=== PATIENT | male | born 1945 | race Caucasian/White ===

== ENCOUNTER 2017-07-18 10:30 | Emergency (ER) | payer OTHER ==
[~2017-07-18] VITALS: Ht 172.7 cm; Wt 104.0 kg
[~2017-07-18 10:30] MED LIST: ASPI325T39 PO; CRG125 PO; DIGO0.2518 PO; GUAISYP4 PO; LISI20TA3 PO; LSX40 PO; LVQ750 PO; OXGN
[2017-07-18 10:49] VITALS: TEMP 36.6; Ht 172.7 cm; Wt 104.0 kg
[2017-07-18] MEDS ORDERED: MoRPHine SULFATE 2 MG/ML CARP IV STA (11:52)
[2017-07-18] MEDS ORDERED: ONDANSETRON INJ 2 MG/ML 2 ML VIAL IV STA (11:52)
[2017-07-18] MEDS ORDERED: CARV12.52 PO (12:32)
[2017-07-18] MEDS ORDERED: LNX25 PO (12:32)
[2017-07-18 12:33] LABS: BASO % 1.3 %; BASO ABS # 0.08 K/uL (0-0.2); COMPLETE YES; EOS % 2.9 %; HEMATOCRIT 40.7 % (42-52); IG% 0.2 %; LYMPH % 23.4 %; LYMPH ABS # 1.47 K/uL (1.2-3.4); MEAN CELL VOLUME 94.9 fL (80-100); MEAN CORPUSCULAR HEMOGLOBIN 31.2 pg (25-34); MEAN CORPUSCULAR HGB CONC 32.9 g/dl (32-36); MONO % 10.7 %; NEUT % 61.5 %; PLATELET COUNT 147 K/uL (130-400); RED BLOOD COUNT 4.29 M/uL (4.7-6.1); WHITE BLOOD COUNT 6.29 K/uL (4.8-10.8)
[2017-07-18 12:50] LABS: BUN/CREATININE RATIO 23.6 (10-20); C-REACTIVE PROTEIN 0.88 mg/dl (0-0.29); CALCIUM 9.2 mg/dl (8.5-10.1); CREATININE 1.25 mg/dl (0.60-1.40); POTASSIUM 4.3 mmol/L (3.5-5.1)
[2017-07-18] MEDS ORDERED: OPTIRAY 320 IV PRN (13:30)
--- NOTE | 2017-07-18 13:38 | EMERGENCY ROOM VISIT NOTE ---
ED Visit Note First contact with patient: 11:21 Pt seen and examined at bedside. Discussed with them additional imaging and possible IV antibiotics. Orders placed by the physician assistant golf course superintendent. We'll discuss with one clinic also. Concern for failed outpatient therapy at this time, we'll evaluate for osteomyelitis. Please see the physician assistant golf course superintendent's full detailed note.
--- NOTE | 2017-07-18 13:57 | DIAGNOSTIC IMAGING REPORT ---
R LOWER EXTREMITY WITH CLINICAL HISTORY: right lower leg open wound for 4 months infection TECHNIQUE: Transaxial acquisition with multi axial reformatted images COMPARISON STUDY: None FINDINGS: Moderate soft tissue edema throughout the soft tissue structures. Atherosclerotic change of the arterial structures of the lower leg which have been described previously. Soft tissue edema and Soft tissue ulceration in the mid tibial region. This is seen primarily anteriorly. There is no evidence for a lytic or blastic process of the underlying tibial bone structures and cells. No CT evidence for osteomyelitis. IMPRESSION: 1. Soft tissue edema of the right lower leg with evidence for soft tissue ulceration anterior to the midshaft tibia. 2. Appearance consistent with that of a soft tissue infection, although there is no evidence for drainable abscess or collection. 3. No CT evidence for osteomyelitis. The above report was generated using voice recognition software. It may contain grammatical, syntax or spelling errors. Electronically signed by: Carl Cruz M.D. 07/18/2017 1:56 PM Dictated Date/Time: 07/18/2017 1:46 PM
[2017-07-18] MEDS ORDERED: VANCOMYCIN 1GM/270ML NSS IV STA (14:10)
[2017-07-18] MEDS ORDERED: HYDR-5688 PO (16:48)
[2017-07-18] MEDS ORDERED: [UNRECOGNIZED DRUG - CODE] PO (16:48)
[2017-07-18] MEDS ORDERED: DOXY1TAB6 PO (16:48)
[2017-07-18 16:51] VITALS: BP 167/78; PULSE 84; O2SAT 95
--- NOTE | 2017-07-18 18:14 | Pharmacy Progress Note ---
ED Pharmacist Progress Note Date of Service: Jul 18, 2017. [facility] pharmacist called stating ofloxacin not in stock and was requesting a change to something they would not have to order. Reviewed case with Rain Mars PAC. Rx changed to Levofloxacin 500mg PO daily x 10 days no refills.
--- NOTE | 2017-07-18 19:52 | EMERGENCY ROOM VISIT NOTE ---
ED Visit Note First contact with patient: 11:21 Chief Complaint: Infected wounds. History of Present Illness: Mr. Barry is a 72-year-old Shyam male who ambulates into the ED accompanied by his and son complaining of infected wounds on the anterior aspects of both lower legs. Patient and report on April 03 Was seen at a local urgent care center on May 22 and July 11 for evaluation of his wounds. He was diagnosed with cellulitis during both visits. On his first visit he received an IM dose of Rocephin and was discharged to home on clindamycin and Silvadene. On his June visit x-rays were performed and there was no signs of osteomyelitis he was given a dose of ceftriaxone and discharged on ciprofloxacin, clindamycin and Bactroban. He was encouraged to make a follow-up with wound care clinic and was only able to be seen in late July. Patient complains of a burning sensation over the anterior aspects of both lower legs. He rates his discomfort 5/10. His pain is nonradiating. His pain worsens with palpation. He has not identified any alleviating factors related to the pain. He has been using his antibiotics for pain prior to arrival at the hospital without relief. He denies any associated fevers, chills, sweats, other skin eruptions, chest pain, shortness of breath, decreased appetite, abdominal pain, nausea/vomiting. Review of Systems: As noted above in history of present illness. 8 body systems were reviewed and found to be negative as noted above. Past Medical History: Paroxysmal atrial fibrillation, cardiomegaly, congestive heart failure, peripheral artery disease. Current Medications: Lasix, Prinivil, aspirin, digoxin, Coreg. Allergies to Medications: Patient denies. Social History: Patient is not currently employed; he feels safe in his home environment; he denies tobacco and alcohol use. Physical Examination: Vital Signs: Date Time Temp Pulse Resp B/P (MAP) Pulse Ox O2 Delivery O2 Flow Rate FiO2 07/18/17 16:51 84 20 167/78 95 Room Air 07/18/17 14:45 75 18 172/80 95 Room Air 07/18/17 13:28 85 18 145/74 98 Room Air 07/18/17 10:49 36.6 72 16 144/75 97 Room Air GENERAL: 72-year-old male in mild to moderate distress due to pain, nontoxic- appearing, afebrile and hemodynamically stable. NEUROLOGICAL: Awake, alert and oriented to person, place and time. Answering questions appropriately and following commands. Normal gait. Good hand eye coordination. SKIN: Warm, dry and pink. Right Lower Leg: Patient has a open wound over the anterior tibia measuring cm. within the wound there is granulation but also purulent material. Surrounding the wound there is some erythema but the skin does not appear cellulitic. Left Lower Leg: He has a abrasion versus a full open thickness wound like the right lower leg. There is no purulent material draining from this wound. Surrounding the wound there is some erythema but the skin does not appear cellulitic. There is no lymphangitis on either legs HEENT: Atraumatic and normocephalic. THORAX: Lungs sounds are clear to auscultation and equal bilaterally with symmetrical chest wall. ABDOMEN: Flat, soft and nontender. Positive bowel sounds in all quadrants. EXTREMITIES: Moves all extremities well on command and with purpose. All distal neurovascular statuses are intact and equal bilaterally. No calf tenderness or cords. ED Course: Patient is assessed as noted above. Patient's medication list was reviewed. Laboratory Testing: Test 07/18/17 12:00 Range/Units White Blood Count 6.29 4.8-10.8 K/uL Red Blood Count 4.29 4.7-6.1 M/uL Hemoglobin 13.4 14.0-18.0 g/dL Hematocrit 40.7 42-52 % Mean Corpuscular Volume 94.9 80-100 fL Mean Corpuscular Hemoglobin 31.2 25-34 pg Mean Corpuscular Hemoglobin Concent 32.9 32-36 g/dl Platelet Count 147 130-400 K/uL Mean Platelet Volume 10.0 7.4-10.4 fL Neutrophils (%) (Auto) 61.5 % Lymphocytes (%) (Auto) 23.4 % Monocytes (%) (Auto) 10.7 % Eosinophils (%) (Auto) 2.9 % Basophils (%) (Auto) 1.3 % Neutrophils # (Auto) 3.88 1.4-6.5 K/uL Lymphocytes # (Auto) 1.47 1.2-3.4 K/uL Monocytes # (Auto) 0.67 0.11-0.59 K/uL Eosinophils # (Auto) 0.18 0-0.5 K/uL Basophils # (Auto) 0.08 0-0.2 K/uL RDW Standard Deviation 54.6 36.4-46.3 fL RDW Coefficient of Variation 15.7 11.5-14.5 % Immature Granulocyte % (Auto) 0.2 % Immature Granulocyte # (Auto) 0.01 0.00-0.02 K/uL Sodium Level 135 136-145 mmol/L Potassium Level 4.3 3.5-5.1 mmol/L Chloride Level 101 98-107 mmol/L Carbon Dioxide Level 29 21-32 mmol/L Anion Gap 6.0 3-11 mmol/L Blood Urea Nitrogen 30 7-18 mg/dl Creatinine 1.25 0.60-1.40 mg/dl Est Creatinine Clear Calc Drug Dose 62.4 ml/min Estimated GFR () 66.3 Estimated GFR (Non- 57.2 BUN/Creatinine Ratio 23.6 10-20 Random Glucose 84 70-99 mg/dl Calcium Level 9.2 8.5-10.1 mg/dl C-Reactive Protein 0.88 0-0.29 mg/dl Blood Culture: Pending Gram Stain: Pending Wound Culture: Pending Right Lower Extremity IV contrast CT: Was reviewed by myself and showing soft tissue edema of the right lower leg with evidence of soft tissue ulcers a patient over the anterior mid shaft tibia; appearance consisted with soft tissue infection although there is no evidence of abscess or collection. No evidence of osteomyelitis. IV lock was initiated and patient received 2 mg of morphine IV for pain, 4 mg of Zofran IV and 1 g of vancomycin IV. Patient was reassessed multiple times during his stay in the emergency department. Patient's case was reviewed with Dr. Quarles; she apparently assessed the patient we agreed on diagnostic approach, treatment, disposition and plan per Patient's case was consulted with case management and the [facility] hospitalist for medical observation/admission Case management felt that patient met criteria for admission and the hospitalist was concerned about his peripheral artery disease and that there was no benefits of admission to the hospital. I discussed these issue with the patient and he agreed to go home with follow-up. Patient was educated about today's findings and instructed on his treatment plan ; he verbalizes understanding and agreement with this plan. Clinical Impression: Nonhealing open wounds to the bilateral anterior lower extremities. Disposition: Patient discharged home in stable condition; prior to departure he was reassessed and subjectively reported that he was pain-free. Plan: Patient was prescribed Floxin and doxycycline and instructed on their use. Patient was prescribed Bradford one tablet every 6 hours as needed for severe pain ; he was given appropriate narcotic precautions. Patient was encouraged to keep his upcoming appointment with wound care and follow-up with the vascular surgeon. Patient was encouraged return ED for worsening pain, fevers, worsening signs of infection or any new/concerning symptoms.
[2017-07-21] MEDS ORDERED: LEVO1TAB33 PO (10:00)
== END 2017-07-18 17:27 | disposition home or self-care (01) ==
LOC: C.EDB 10:31 → C.EDC 17:27
DX: L97.219 Non-pressure chronic ulcer of right calf with unspecified severity (principal); L97.229 Non-pressure chronic ulcer of left calf with unspecified severity; I48.0 Paroxysmal atrial fibrillation; I51.7 Cardiomegaly; I50.9 Heart failure, unspecified; I73.9 Peripheral vascular disease, unspecified; Z79.82 Long term (current) use of aspirin

== ENCOUNTER 2018-08-04 22:11 | Inpatient (IN) ==
[2018-08-04] MEDS ORDERED: FUROSEMIDE 40 MG/4 ML VIAL IV STA (22:34)
[2018-08-04 22:43] LABS: Basophils # (auto) 0.03 K/uL (0-0.2); Basophils % (auto) 0.5 %; Eosinophils # (auto) 0.18 K/uL (0-0.5); Eosinophils % (auto) 2.9 %; Hematocrit (blood only) 39.9 % (42-52); Hemoglobin 13.4 g/dL (14.0-18.0); Immature Granulocytes # (auto) 0.01 K/uL (0.00-0.02); Immature Granulocytes % (auto) 0.2 %; Lymphocytes # (auto) 1.69 K/uL (1.2-3.4); Lymphocytes % (auto) 27.3 %; Mean Corpuscular Hgb Conc 33.6 g/dL (32-36); Mean Corpuscular Volume 95.2 fL (80-100); Mean Platelet Volume 10.9 fL (7.4-10.4); Monocytes % (auto) 9.7 %; Neutrophils # (auto) 3.67 K/uL (1.4-6.5); Neutrophils % (auto) 59.4 %; Platelet Count 139 K/uL (130-400); RDW Coefficient of Variation 16.4 % (11.5-14.5); RDW Standard Deviation 57.4 fL (36.4-46.3); Red Blood Count 4.19 M/uL (4.7-6.1); White Blood Count 6.18 K/uL (4.8-10.8)
[2018-08-04 22:53] LABS: Appearance Urine Clear (Clear); Bilirubin Urine Negative (Negative); Color Urine Yellow; Glucose Urine UA Negative (Negative); Ketones Urine Negative (Negative); Leukocyte Esterase Urine Negative (Negative); Nitrite Urine Negative (Negative); Protein Urine Negative (Negative); Urobilinogen Urine Negative (Negative)
[2018-08-04 22:54] LABS: INR 1.1 (0.9-1.1); Partial Thromboplastin Time 26.2 Seconds (21.0-31.0); Prothrombin Time 11.1 Seconds (9.0-12.0)
[2018-08-04 22:59] LABS: Albumin Level 3.9 gm/dl (3.4-5.0); BUN Creatinine Ratio 26.1 (10-20); Calcium 8.7 mg/dl (8.5-10.1); Creatinine Clr Calc Pharmacy 54.9 ml/min; Est GFR (African American) 58.4; Est GFR (Non-African American) 50.4; Potassium 3.8 mmol/L (3.5-5.1)
[2018-08-04 23:02] LABS: RBC Morphology Unremarkable
[2018-08-04 23:04] LABS: Albumin Globulin Ratio 0.8 (0.9-2); Bilirubin,Total 0.6 mg/dl (0.2-1); Globulin 4.8 gm/dl (2.5-4.0); Total Protein 8.7 gm/dl (6.4-8.2); Troponin I 0.034 ng/ml (0-0.045)
--- NOTE | 2018-08-04 23:11 | XRay Report ---
XR chest 1V portable CLINICAL HISTORY: Shortness of breath COMPARISON STUDY: 03/25/2015 FINDINGS: The heart is moderately enlarged. There is no failure. There is no focal pulmonary consolid ation. No pleural effusions are visualized.[ IMPRESSION: Cardiomegaly. No acute findings. Electronically signed by: Roberto Og M.D. 08/04/2018 11:05 PM
[2018-08-05] MEDS ORDERED: OPTIRAY 320 125ml IV PRN (00:37)
--- NOTE | 2018-08-05 00:49 | Emergency Department Note ---
Entered by Vy Sparrow acting as a scribe for Maya Franco MD History of Present Illness General Chief complaint: Chest Pain Stated complaint: CHEST PAIN Source: patient History of Present Illness Onset (ago): hour(s) (prior to arrival) Location: chest (chest pain from fluid buildup) Radiation: other (arm) Pain Consistency: + intermittent Maximum Pain Intensity: 8 Associated symptoms: + shortness of breath and + other (right leg swelling) Treatments prior to arrival: aspirin (325 mg) The patient is a 73 year old M who presents to the Emergency Room with complaints of intermittent chest pain starting prior to arrival. He states that he is experiencing fluid buildup in his chest. He states that he was prescribed Lasix for congestive heart failure 9.5 years ago but adds that it is not currently helping. He notes that his chest pain radiates to his arm. He states that he is currently experiencing shortness of breath and right leg swelling for a year. Pt's relates a h/o "blockages in the legs and Dr Brooks ( interventional cards) told us his vascular disease is severe." He notes that he took 1 aspirin 325 mg prior to arrival. He denies having a pacemaker, CV stents, and diabetes. Home Medications Home Medications Medication Instructions Recorded Confirmed Type aspirin 325 mg PO DAILY 08/05/18 08/05/18 History carvedilol 12.5 mg PO BID 08/05/18 08/05/18 History digoxin 250 mcg PO DAILY 08/05/18 08/05/18 History furosemide 80 mg PO DAILY 08/05/18 08/05/18 History lisinopril 20 mg PO DAILY 08/05/18 08/05/18 History Allergies Allergy/AdvReac Type Severity Reaction Status Date / Time ragweed pollen Allergy Mild Verified 08/05/18 00:09 Dust Allergy Mild Uncoded 08/05/18 00:09 Past Med/Surg History Medical History History of atrial fibrillation (Chronic) CHF (congestive heart failure) (Chronic) Cardiomegaly (Chronic) Family History Other No significant family history Social History Current Living Situation: Family Current Living Situation Comment: Lives in [place] with Other Information That Helps Us Care for You: No Safety Concerns: Feels Safe At This Time Smoking Status: Former smoker Tobacco Type: cigarettes Cigarettes per Day: 1ppd Smoking End Date: 2014 Number of Years Since Quit: 4 Hx Alcohol Use: No Hx Substance Use: No Beliefs That Will Affect Care: Spiritism Communication Ability: Effective Review of Systems See HPI for pertinent positives & negatives. and A total of 10 systems reviewed and were otherwise negative Physical Exam Vital Signs Vital Signs - 24 hr 08/04/18 22:13 08/04/18 23:11 08/04/18 23:54 Temperature 36.4 C L Temperature Source Oral Sepsis Recent Fever Within 48 Hours No Sepsis New/Unexplained Change in Mental Status No Sepsis Action Taken by Nursing No Action Required Pulse Rate 68 Pulse Rate [Right Finger] 62 55 L Pulse Rhythm Regular Pulse Rhythm [Right Finger] Pulse Strength Normal Pulse Strength [Right Finger] Respiratory Rate 18 19 18 Respiratory Effort / Characteristics Non-Labored Spontaneous Respiratory Depth Normal Normal Respiratory Pattern Regular Blood Pressure 149/89 H Blood Pressure [Left Arm] 154/81 H 133/75 Blood Pressure [Right Arm] Blood Pressure Mean 109 Blood Pressure Mean [Left Arm] 105 94 Blood Pressure Mean [Right Arm] Blood Pressure Position Sitting Blood Pressure Position [Left Arm] Blood Pressure Position [Right Arm] Pulse Oximetry 97 97 95 Oxygen Delivery Method Room Air Room Air Oxygen Delivery Method [Left Index Finger] 08/05/18 00:40 08/05/18 02:15 08/05/18 03:48 Temperature Temperature Source Sepsis Recent Fever Within 48 Hours Sepsis New/Unexplained Change in Mental Status Sepsis Action Taken by Nursing Pulse Rate Pulse Rate [Right Finger] 69 56 L 57 L Pulse Rhythm Pulse Rhythm [Right Finger] Pulse Strength Pulse Strength [Right Finger] Respiratory Rate 20 21 20 Respiratory Effort / Characteristics Non-Labored Respiratory Depth Normal Respiratory Pattern Blood Pressure Blood Pressure [Left Arm] 179/77 H 137/86 148/83 H Blood Pressure [Right Arm] Blood Pressure Mean Blood Pressure Mean [Left Arm] 111 103 104 Blood Pressure Mean [Right Arm] Blood Pressure Position Blood Pressure Position [Left Arm] Blood Pressure Position [Right Arm] Pulse Oximetry 97 97 95 Oxygen Delivery Method Room Air Oxygen Delivery Method [Left Index Finger] 08/05/18 04:30 08/05/18 04:40 08/05/18 05:21 Temperature 36.4 C L Temperature Source Oral Sepsis Recent Fever Within 48 Hours Sepsis New/Unexplained Change in Mental Status Sepsis Action Taken by Nursing Pulse Rate Pulse Rate [Right Finger] 76 Pulse Rhythm Pulse Rhythm [Right Finger] Regular Pulse Strength Pulse Strength [Right Finger] Normal Respiratory Rate 18 Respiratory Effort / Characteristics Non-Labored Respiratory Depth Normal Respiratory Pattern Regular Blood Pressure Blood Pressure [Left Arm] 165/87 H Blood Pressure [Right Arm] Blood Pressure Mean Blood Pressure Mean [Left Arm] 113 Blood Pressure Mean [Right Arm] Blood Pressure Position Blood Pressure Position [Left Arm] Lying Blood Pressure Position [Right Arm] Pulse Oximetry 97 Oxygen Delivery Method Room Air Room Air Room Air Oxygen Delivery Method [Left Index Finger] Room Air 08/05/18 05:22 08/05/18 05:57 08/05/18 07:00 Temperature 36.5 C Temperature Source Oral Sepsis Recent Fever Within 48 Hours Sepsis New/Unexplained Change in Mental Status Sepsis Action Taken by Nursing Pulse Rate Pulse Rate [Right Finger] 66 Pulse Rhythm Pulse Rhythm [Right Finger] Pulse Strength Pulse Strength [Right Finger] Respiratory Rate 18 Respiratory Effort / Characteristics Non-Labored Respiratory Depth Normal Respiratory Pattern Regular Blood Pressure Blood Pressure [Left Arm] 138/89 Blood Pressure [Right Arm] Blood Pressure Mean Blood Pressure Mean [Left Arm] 105 Blood Pressure Mean [Right Arm] Blood Pressure Position Blood Pressure Position [Left Arm] Lying Blood Pressure Position [Right Arm] Pulse Oximetry 96 Oxygen Delivery Method Room Air Room Air Oxygen Delivery Method [Left Index Finger] Room Air 08/05/18 08:00 08/05/18 11:53 Temperature 37.0 C Temperature Source Oral Sepsis Recent Fever Within 48 Hours Sepsis New/Unexplained Change in Mental Status Sepsis Action Taken by Nursing Pulse Rate 51 L Pulse Rate [Right Finger] 71 Pulse Rhythm Pulse Rhythm [Right Finger] Pulse Strength Pulse Strength [Right Finger] Respiratory Rate 20 Respiratory Effort / Characteristics Non-Labored Respiratory Depth Normal Respiratory Pattern Regular Blood Pressure Blood Pressure [Left Arm] Blood Pressure [Right Arm] 130/76 Blood Pressure Mean Blood Pressure Mean [Left Arm] Blood Pressure Mean [Right Arm] 94 Blood Pressure Position Blood Pressure Position [Left Arm] Blood Pressure Position [Right Arm] Sitting Pulse Oximetry 96 Oxygen Delivery Method Room Air Room Air Oxygen Delivery Method [Left Index Finger] Vital signs reviewed. General: Chronically ill-appearing male, in no significant distress. HEENT: No scleral icterus, PERRLA, neck supple. Atraumatic. Cardiovascular: Regular rate and rhythm, no extra sounds. Pulmonary: Clear to auscultation bilaterally, normal work of breathing. Abdomen: Obese, soft, nontender, nondistended, positive bowel sounds. Musculoskeletal: Atraumatic, 1+ pitting edema to bilateral lower extremities with 2 cm ulceration to mid-anterior de la paz, venous stasis changes of right greater than left lower extremity. Neurologic: Patient awake alert and oriented x 3. Skin: Warm, dry, no rash. Wound to RLE as described above. Course 223: Past medical records reviewed. The patient was evaluated in room B9, and a complete history and physical examination were performed. Administered Medications Aspirin (Ecotrin) 325 mg PO DAILY DANY Stop: 09/04/18 08:59 Last Admin: 08/05/18 08:29 Dose: 325 mg Carvedilol (Coreg) 12.5 mg PO BID DANY Stop: 09/04/18 08:59 Last Admin: 08/05/18 08:29 Dose: 12.5 mg Heparin Sodium (Porcine) (Heparin Sodium (Porcine)) 5,000 units SQ Q12 DANY Stop: 09/04/18 08:59 Last Admin: 08/05/18 08:28 Dose: 5,000 units Furosemide 40 mg/ Syringe 4 mls @ 4 mls/min IV [id number] DANY Stop: 09/04/18 08:59 Last Admin: 08/05/18 08:29 Dose: 4 mls/min Lisinopril (Zestril) 20 mg PO DAILY DANY Stop: 09/04/18 08:59 Last Admin: 08/05/18 08:29 Dose: 20 mg Magnesium Oxide (Mag-Ox) 400 mg PO QAM DANY Stop: 09/04/18 08:59 Last Admin: 08/05/18 08:39 Dose: 400 mg Pantoprazole Sodium (Protonix) 40 mg PO DAILY DANY Stop: 09/04/18 08:59 Last Admin: 08/05/18 08:29 Dose: 40 mg Potassium Chloride (Klor-Con M20) 20 meq PO QAM DANY Stop: 09/04/18 08:59 Last Admin: 08/05/18 08:39 Dose: 20 meq Discontinued Medications Furosemide (Lasix) 80 mg IV NOW STA Stop: 08/04/18 22:35 Last Admin: 08/04/18 22:43 Dose: 80 mg Piperacillin Sod/Tazobactam Sod (Zosyn) 4.5 gm in 120 mls @ 240 mls/hr IV NOW ONE Stop: 08/05/18 05:59 Last Infusion: 08/05/18 06:31 Dose: 0 mls/hr Admin: 08/05/18 05:56 Dose: 240 mls/hr Vancomycin HCl 2,500 mg/ (Sodium Chloride) 550 mls @ 200 mls/hr IV NOW ONE Stop: 08/05/18 07:59 Last Infusion: 08/05/18 11:00 Dose: 0 mls/hr Admin: 08/05/18 06:32 Dose: 200 mls/hr Piperacillin Sod/Tazobactam (Sod 3.375 gm/ Dextrose) 115 mls @ 28.75 mls/hr IV Q8H DANY; Protocol Stop: 08/15/18 09:59 Last Admin: 08/05/18 10:12 Dose: 28.8 mls/hr Ioversol (Optiray 320 125ml) 104 ml IV ONCE PRN PRN Reason: Interaction Checking Stop: 08/09/18 00:36 Last Admin: 08/05/18 00:38 Dose: 104 ml Perflutren Lipid Microsphere (Definity) 1 ml IV ONCE ONE Stop: 08/05/18 08:37 Last Admin: 08/05/18 08:36 Dose: 2 ml Medical Decision Making Differential Diagnosis Differential diagnoses includes but is not limited to pneumonia, bronchitis, COPD/Asthma exacerbation, pneumothorax, pulmonary embolism, congestive heart failure, acute coronary syndrome Medical Records Attestation: I reviewed the patient's medical records. Home Medications Current Medication List: was personally reviewed by me Laboratory Data Attestation: I reviewed the patient's lab results. Result diagrams: 08/05/18 06:48 08/05/18 06:48 Lab Results 08/04/18 08/04/18 08/04/18 Range/Units 22:25 22:25 22:25 WBC 6.18 (4.8-10.8) K/uL RBC 4.19 L (4.7-6.1) M/uL Hgb 13.4 L (14.0-18.0) g/dL Hct 39.9 L (42-52) % MCV 95.2 (80-100) fL MCH 32.0 (25-34) pg MCHC 33.6 (32-36) g/dL RDW Std Deviation 57.4 H (36.4-46.3) fL RDW Coeff of Maria Teresa 16.4 H (11.5-14.5) % Plt Count 139 (130-400) K/uL MPV 10.9 H (7.4-10.4) fL Immature Gran % (Auto) 0.2 % Neut % (Auto) 59.4 % Lymph % (Auto) 27.3 % Mcclain % (Auto) 9.7 % Eos % (Auto) 2.9 % Baso % (Auto) 0.5 % Immature Gran # (Auto) 0.01 (0.00-0.02) K/uL Neut # (Auto) 3.67 (1.4-6.5) K/uL Lymph # (Auto) 1.69 (1.2-3.4) K/uL Mcclain # (Auto) 0.60 H (0.11-0.59) K/uL Eos # (Auto) 0.18 (0-0.5) K/uL Baso # (Auto) 0.03 (0-0.2) K/uL RBC Morphology Unremarkable PT 11.1 (9.0-12.0) Seconds INR 1.1 (0.9-1.1) APTT 26.2 (21.0-31.0) Seconds PTT Ratio 1.0 D-Dimer (0-500) ug/L FEU Sodium 137 (136-145) mmol/L Potassium 3.8 (3.5-5.1) mmol/L Chloride 101 (98-107) mmol/L Carbon Dioxide 28 (21-32) mmol/L Anion Gap 7.0 (3-11) BUN 36 H (7-18) mg/dl Creatinine 1.38 (0.6-1.4) mg/dl Est Cr Clr Drug Dosing 54.9 ml/min Est GFR ( Amer) 58.4 Est GFR (Non-Af Amer) 50.4 BUN/Creatinine Ratio 26.1 H (10-20) Glucose 107 H (70-99) mg/dl Calcium 8.7 (8.5-10.1) mg/dl Magnesium 2.0 (1.8-2.4) mg/dl Total Bilirubin 0.6 (0.2-1) mg/dl AST 36 (15-37) U/L ALT 56 (12-78) U/L Alkaline Phosphatase 66 (45-117) U/L Troponin I 0.034 (0-0.045) ng/ml NT-Pro-B Natriuret Pep 2441 H (0-900) pg/ml Total Protein 8.7 H (6.4-8.2) gm/dl Albumin 3.9 (3.4-5.0) gm/dl Globulin 4.8 H (2.5-4.0) gm/dl Albumin/Globulin Ratio 0.8 L (0.9-2) Urine Color Urine Appearance (Clear) Urine pH (4.5-7.5) Ur Specific Reeders (1.000-1.030) Urine Protein (Negative) Urine Glucose (UA) (Negative) Urine Ketones (Negative) Urine Blood (Negative) Urine Nitrite (Negative) Urine Bilirubin (Negative) Urine Urobilinogen (Negative) Ur Leukocyte Esterase (Negative) Digoxin (0.8-2.0) ng/ml 08/04/18 08/04/18 08/05/18 Range/Units 22:25 22:45 06:48 WBC (4.8-10.8) K/uL RBC (4.7-6.1) M/uL Hgb (14.0-18.0) g/dL Hct (42-52) % MCV (80-100) fL MCH (25-34) pg MCHC (32-36) g/dL RDW Std Deviation (36.4-46.3) fL RDW Coeff of Maria Teresa (11.5-14.5) % Plt Count (130-400) K/uL MPV (7.4-10.4) fL Immature Gran % (Auto) % Neut % (Auto) % Lymph % (Auto) % Mcclain % (Auto) % Eos % (Auto) % Baso % (Auto) % Immature Gran # (Auto) (0.00-0.02) K/uL Neut # (Auto) (1.4-6.5) K/uL Lymph # (Auto) (1.2-3.4) K/uL Mcclain # (Auto) (0.11-0.59) K/uL Eos # (Auto) (0-0.5) K/uL Baso # (Auto) (0-0.2) K/uL RBC Morphology PT (9.0-12.0) Seconds INR (0.9-1.1) APTT (21.0-31.0) Seconds PTT Ratio D-Dimer 4150 H* (0-500) ug/L FEU Sodium (136-145) mmol/L Potassium (3.5-5.1) mmol/L Chloride (98-107) mmol/L Carbon Dioxide (21-32) mmol/L Anion Gap (3-11) BUN (7-18) mg/dl Creatinine (0.6-1.4) mg/dl Est Cr Clr Drug Dosing ml/min Est GFR ( Amer) Est GFR (Non-Af Amer) BUN/Creatinine Ratio (10-20) Glucose (70-99) mg/dl Calcium (8.5-10.1) mg/dl Magnesium (1.8-2.4) mg/dl Total Bilirubin (0.2-1) mg/dl AST (15-37) U/L ALT (12-78) U/L Alkaline Phosphatase (45-117) U/L Troponin I 0.034 (0-0.045) ng/ml NT-Pro-B Natriuret Pep (0-900) pg/ml Total Protein (6.4-8.2) gm/dl Albumin (3.4-5.0) gm/dl Globulin (2.5-4.0) gm/dl Albumin/Globulin Ratio (0.9-2) Urine Color Yellow Urine Appearance Clear (Clear) Urine pH 5.0 (4.5-7.5) Ur Specific Reeders 1.010 (1.000-1.030) Urine Protein Negative (Negative) Urine Glucose (UA) Negative (Negative) Urine Ketones Negative (Negative) Urine Blood Negative (Negative) Urine Nitrite Negative (Negative) Urine Bilirubin Negative (Negative) Urine Urobilinogen Negative (Negative) Ur Leukocyte Esterase Negative (Negative) Digoxin (0.8-2.0) ng/ml 08/05/18 08/05/18 08/05/18 Range/Units 06:48 06:48 11:48 WBC 5.20 (4.8-10.8) K/uL RBC 3.94 L (4.7-6.1) M/uL Hgb 12.1 L (14.0-18.0) g/dL Hct 37.4 L (42-52) % MCV 94.9 (80-100) fL MCH 30.7 (25-34) pg MCHC 32.4 (32-36) g/dL RDW Std Deviation 57.0 H (36.4-46.3) fL RDW Coeff of Maria Teresa 16.4 H (11.5-14.5) % Plt Count 128 L (130-400) K/uL MPV 11.5 H (7.4-10.4) fL Immature Gran % (Auto) 0.0 % Neut % (Auto) 57.7 % Lymph % (Auto) 26.7 % Mcclain % (Auto) 12.3 % Eos % (Auto) 2.7 % Baso % (Auto) 0.6 % Immature Gran # (Auto) 0.00 (0.00-0.02) K/uL Neut # (Auto) 3.00 (1.4-6.5) K/uL Lymph # (Auto) 1.39 (1.2-3.4) K/uL Mcclain # (Auto) 0.64 H (0.11-0.59) K/uL Eos # (Auto) 0.14 (0-0.5) K/uL Baso # (Auto) 0.03 (0-0.2) K/uL RBC Morphology PT (9.0-12.0) Seconds INR (0.9-1.1) APTT (21.0-31.0) Seconds PTT Ratio D-Dimer (0-500) ug/L FEU Sodium 138 (136-145) mmol/L Potassium 3.6 (3.5-5.1) mmol/L Chloride 102 (98-107) mmol/L Carbon Dioxide 30 (21-32) mmol/L Anion Gap 6.0 (3-11) BUN 31 H (7-18) mg/dl Creatinine 1.16 (0.6-1.4) mg/dl Est Cr Clr Drug Dosing 66.8 ml/min Est GFR ( Amer) 72.0 Est GFR (Non-Af Amer) 62.1 BUN/Creatinine Ratio 26.7 H (10-20) Glucose 99 (70-99) mg/dl Calcium 8.6 (8.5-10.1) mg/dl Magnesium (1.8-2.4) mg/dl Total Bilirubin 0.8 (0.2-1) mg/dl AST 27 (15-37) U/L ALT 47 (12-78) U/L Alkaline Phosphatase 52 (45-117) U/L Troponin I (0-0.045) ng/ml NT-Pro-B Natriuret Pep (0-900) pg/ml Total Protein 8.0 (6.4-8.2) gm/dl Albumin 3.6 (3.4-5.0) gm/dl Globulin 4.4 H (2.5-4.0) gm/dl Albumin/Globulin Ratio 0.8 L (0.9-2) Urine Color Urine Appearance (Clear) Urine pH (4.5-7.5) Ur Specific Reeders (1.000-1.030) Urine Protein (Negative) Urine Glucose (UA) (Negative) Urine Ketones (Negative) Urine Blood (Negative) Urine Nitrite (Negative) Urine Bilirubin (Negative) Urine Urobilinogen (Negative) Ur Leukocyte Esterase (Negative) Digoxin 1.0 (0.8-2.0) ng/ml Imaging Data Radiologist's Impression: Radiology results as stated below per my review and the radiologist's interpretation: XR chest 1V portable CLINICAL HISTORY: Shortness of breath COMPARISON STUDY: 03/25/2015 FINDINGS: The heart is moderately enlarged. There is no failure. There is no focal pulmonary consolidation. No pleural effusions are visualized.[ IMPRESSION: Cardiomegaly. No acute findings. CTA chest: No central pulmonary embolus. Some air trapping in the lungs. Mild atelectasis/scarring at the left lung base. Splenomegaly. Mediastinal and hilar nodes. Probable small subtle dense cyst in the right kidney. Radiologist: Chase Mckee MD ECG Data Attestation: I personally reviewed and interpreted this ECG as follows: Indication: chest pain Rate (beats per minute): 63 Rhythm: atrial fibrillation Findings: + other (previous inferior infarct), + Q waves (QTc 462) and + RBBB; no acute ischemic change Comparison ECG Date: from (03/26/15) Change: no significant change Blood Pressure Blood Pressure Findings: Elevated blood pressure Blood Pressure Disposition: further management by hospitalist MDM Narrative This pt was evaluated and appeared to be in no distress. IV access was obtained and lab work was drawn. PT was placed on the knot tier. He is found to be in a rate controlled a fib with RBBB. CXR reveals cardiomegaly, no overt pulmonary edema. BNP is 2441. Lab work indicated d-dimer of 4000. CTA chest was performed and is negative for PE. Pt's previous echo indicated severe LV dysfunction. Pt did receive 80 mg IV lasix on my initial evaluation. He began to diurese and states SOB was improved, but his CP had worsened in severity, but was fleeting. Dopplers of BLE were ordered. Pt's case was d/w Dr Tyler of the hospitalist service, who will evaluate for further management. Pt and were educated on the findings and plan, and agree. Impression & Plan Substernal chest pain, ROBERT (dyspnea on exertion), Atrial fibrillation with normal ventricular rate, RBBB Discharge Plan Visit Data *Final* Discharge Date/Time: 08/05/18 04:30 Chief Complaint: Chest Pain Stated Complaint: CHEST PAIN ED Provider: Maya Franco Discharge Problem: Substernal chest pain, ROBERT (dyspnea on exertion), Atrial fibrillation with normal ventricular rate, RBBB Patient Disposition: Admitted As Inpatient Discharge Instructions Interventions: ED Discharge Assessment Last Done: 08/05/18 04:30 The scribe's documentation has been prepared under my direction and personally reviewed by me in its entirety. I confirm that the note above accurately reflects all work, treatment, procedures, and medical decision making performed by me.
--- NOTE | 2018-08-05 03:08 | History & Physical Report ---
Date of Service August 05, 2018 Assessment & Plan (1) Acute exacerbation of congestive heart failure: Chris Schmidt is a 73 y.o male with history of Heart Failure and PAD admitted for management of acute heart failure exacerbation and chest pain found to have celllitis of right lower extremity requiring treatment. 1. Acute Heart Failure Exacerbation - Likely secondary to chronic decompensation vs cellulitis infection -CXR negative for consolidation/effusion -BNP of 2441 -s/p 80mg Lasix IV in ED -Lasix 40mg IV BID ordered, continue IV lasix until euvolemic state -Hold home lasix of 80mg PO daily -Admitted to Tele for monitoring -Monitor I/O -last ECHO found from 2014 with EF of 15-20% will order ECHO -Continue Carvedilol, Digoxin, and Lisinopril 2. Chest Pain - Likely Secondary to heart failure exacerbation -CTA official read pending, mediastinal/hilar adenopathy noted -Adenopathy may be secondary to primary lung cancer vs sarcoid -CHELSEA ordered to eval for Sarcoid -Troponin x 1 negative (0.034), will trend -EKG: RBB, old inferior infarct -Pulm consulted for further evaluation 3. Peripheral Artery Disease -Chronic in nature -Venous doppler completed, read is pending -Ulcer present on right lower extremity, with overlying cellulitis -Vascular consulted: will appreciate recommendations 4. Cellulitis right lower extremity -Unclear as to how long it has been present -surrounding site of peripheral ulcer -WBC wnl -Vanc and Zosyn ordered -Blood cultures ordered -Will consult wound care 5. ASCVD risk -Continue Aspirin 325mg PO daily FEN/GI IVF: hold Electroytes: monitor and replace Nutrition: low sodium diet Activity: out of bed to chair with assistance GI PPX: Protonix DVT PPx: Heparin and SCD Code: DNR Dispo: Chris Schmidt is admitted to tele for management of heart failure exacerbation and treatment of cellulitis. Plan to discharge to home when stable. Present on Admission?: Yes (2) PAD (peripheral artery disease): Present on Admission?: Yes (3) Cellulitis: Present on Admission?: Yes History of Present Illness Chief Complaint: I could feel fluid sloshing around and then started to have chest pain Primary Care Provider: Bladimir Flores PA-C Chris Schmidt is a 73 y.o male with history of heart failure, PAD, and Afib who presents to the ED after having an episode of left-sided chest pain. History per patient and his . States that over the past two weeks he has noticed increased swelling in bilateral lower extremity but has been taking Lasix 80mg PO daily. Does not miss doses of medication. Per he sleeps in the recliner most nights over the past 10 years. Also reports non-productive cough x 2 days and "feeling sloshing around inside my chest and belly". On 08/04 reports "fluid in my chest" followed by chest pain during the evening described as aching in sensation and not resolving. He did not take medication to relieve pain in chest but reports that he doubled his dose of lasix and symptoms persisted. Follows with cardiology, Dr. Verma. Additional history of PAD with right lower extremity ulcer on anterior portion of lower leg. Ulcer has been present x 1 year. Per recommendations were made in the past for femoral artery bypass but Mr. Schmidt refused surgery. Wound care has not been helpful and Mrs. Schmidt has been using household remedies, Vitamin O, to cleanse the site regularly. ED course: Lasix 80 IV given once, CXR, CTA, and Venous Doppler obtained. Allergies Allergy/AdvReac Type Severity Reaction Status Date / Time ragweed pollen Allergy Mild Verified 08/05/18 00:09 Dust Allergy Mild Uncoded 08/05/18 00:09 Home Medications Home Medications Medication Instructions Recorded Confirmed Type aspirin 325 mg PO DAILY 08/05/18 08/05/18 History carvedilol 12.5 mg PO BID 08/05/18 08/05/18 History digoxin 250 mcg PO DAILY 08/05/18 08/05/18 History furosemide 80 mg PO DAILY 08/05/18 08/05/18 History lisinopril 20 mg PO DAILY 08/05/18 08/05/18 History Past Med/Surg History Medical History History of atrial fibrillation (Chronic) CHF (congestive heart failure) (Chronic) Cardiomegaly (Chronic) Family History Other No significant family history Social History Current Living Situation: Family Current Living Situation Comment: Lives in [place] with Other Information That Helps Us Care for You: No Safety Concerns: Feels Safe At This Time Smoking Status: Former smoker Tobacco Type: cigarettes Cigarettes per Day: 1ppd Smoking End Date: 2014 Number of Years Since Quit: 4 Hx Alcohol Use: No Hx Substance Use: No Beliefs That Will Affect Care: Gnosticism Communication Ability: Effective Review of Systems Constitutional: no fever, no sweats and no fatigue Eyes: no worsening vision Ear, Nose, Mouth, Throat: no nasal congestion Respiratory: + cough and + dyspnea; no chest congestion, no pain with cough, no sputum production and no wheezing Cardiovascular: + dyspnea, + dyspnea on exertion and + edema; no chest pain and no palpitations Gastrointestinal: no nausea, no vomiting and no change in bowel habits Genitourinary (Male): no dysuria Musculoskeletal: no back pain and no neck pain Integumentary: no rash Neurologic: no tingling, no numbness and no paresthesia Physical Exam 2 Vital Signs (Past 24 Hours): Last Vital Signs Temp 36.4 C L 08/04/18 22:13 Pulse 56 L 08/05/18 02:15 Resp 21 08/05/18 02:15 BP 137/86 08/05/18 02:15 Pulse Ox 97 08/05/18 02:15 Constitutional: well developed, well nourished, + well hydrated, + obese and cooperative; no acute distress and not ill appearing Eyes: PERRL, conjunctivae normal, anicteric sclerae ENMT: moist mucus membranes, mucus in posterior pharynx Neck: neck supple, negative LAD Respiratory: Auscultation: + diminished lung sounds (left lower base); no rales, no rhonchi and no wheezes Cardiovascular: Rate/Rhythm: regular rate and regular rhythm Heart Sounds: + murmur (systolic ejection murmur grade III/) Extremities: + edema (non- pitting bilateral lower extremity) right lower extremity: anterior surface with central ulcer approximately [id number] and surrounding erythema that expands to full anterior surface of right lower extremity, nttp, warmth, erythema Gastrointestinal (Abdomen): abdomen firm, distended, nttp, bowel sounds present in all 4 quadrants Musculoskeletal: moving all extremities, strength 5/5 Skin: left lower extremity with hemosiderin deposition, please see comments above regarding ulcer on right lower extremity Results & Data Laboratory Results BNP of 2441 BUN/Cr 26.1 Diagnostic Findings Chest Xray negative for consolidation/effusion Code Status & VTE Plan Code Status DNR VTE Prophylaxis Plan VTE Prophylaxis will be ordered: Yes Supervising Physician Co-Signing Physician Notes Attending addendum: I have physically seen this patient, have supervised the medical residents activities, and agree with the H&P unless as otherwise noted. Assessment and Plan: Acute on chronic systolic CHF with exacerbation-- The patient will be admitted to telemetry for serial cardiac enzymes, serial EKG's, cardiac rhythm monitoring and a 2-D echocardiogram with Dopplers. Given Lasix 80 mg IV in the ED. Continue Lasix 40 mg IV twice daily. Hold outpatient Lasix dose of 80 mg p.o. daily. Echo 2014 showed EF of 15-20%. Continue carvedilol, digoxin and lisinopril. Mediastinal and hilar lymphadenopathy/splenomegaly-- Concerned about inflammatory disease such as sarcoidosis, or oncologic process such as lymphoma. Patient does of note have extensive association with small meals and with dust. Consult pulmonary. Peripheral arterial disease-- Chronic ulceration with extensive surrounding cellulitis on right lower extremity. Order x-ray and arterial Dopplers. Empiric vancomycin and Zosyn IV. Order blood cultures. Consult wound care. Could benefit in the short term with Unna boots. Remaining orders and notations as noted.
[2018-08-05] MEDS ORDERED: PIPERACILL/TAZOBAC CONSULT ACTIVE PRN (05:15)
[2018-08-05] MEDS ORDERED: MAGNESIUM HYDROXIDE SUSP 30 ML UDC PO PRN (05:15)
[2018-08-05] MEDS ORDERED: POLYETHYLENE (MIRALAX) 17 GM PACK PO PRN (05:15)
[2018-08-05] MEDS ORDERED: ACETAMINOPHEN 325 MG TAB PO PRN (05:15)
[2018-08-05] MEDS ORDERED: ALUMINUM/MAGNESIUM SUSP 30 ML UDC PO PRN (05:15)
[2018-08-05] MEDS ORDERED: ONDANSETRON INJ 2 MG/ML 2 ML VIAL IV PRN (05:15)
[2018-08-05] MEDS ORDERED: VANCOMYCIN HCL 2,500 MG in SODIUM CHLORIDE 0.9% 500 ML IV ONE (05:15)
[2018-08-05] MEDS ORDERED: VANCOMYCIN CONSULT ACTIVE PRN (05:15)
[2018-08-05] MEDS ORDERED: NITROGLYCERIN SL 0.4 MG/TAB TAB SL PRN (05:15)
[2018-08-05] MEDS ORDERED: MoRPHine SULFATE 2 MG/ML CARP IV PRN (05:15)
[2018-08-05] MEDS ORDERED: PIPERACILLIN/TAZOBACTAM 4.5 GM/120 ML BAG IV ONE (05:30)
[2018-08-05 07:34] LABS: Basophils # (auto) 0.03 K/uL (0-0.2); Basophils % (auto) 0.6 %; Eosinophils # (auto) 0.14 K/uL (0-0.5); Eosinophils % (auto) 2.7 %; Hematocrit (blood only) 37.4 % (42-52); Hemoglobin 12.1 g/dL (14.0-18.0); Lymphocytes # (auto) 1.39 K/uL (1.2-3.4); Lymphocytes % (auto) 26.7 %; Mean Corpuscular Volume 94.9 fL (80-100); Mean Platelet Volume 11.5 fL (7.4-10.4); Monocytes # (auto) 0.64 K/uL (0.11-0.59); Monocytes % (auto) 12.3 %; Neutrophils % (auto) 57.7 %; Platelet Count 128 K/uL (130-400); RDW Coefficient of Variation 16.4 % (11.5-14.5); Red Blood Count 3.94 M/uL (4.7-6.1)
--- NOTE | 2018-08-05 07:38 | Ultrasound Report ---
BILATERAL LOWER EXTREMITY VENOUS DOPPLER CLINICAL HISTORY: DVT, PE COMPARISON STUDY: No previous studies for comparison. TECHNIQUE: Sonography of the deep venous system of the bilateral lower extremities was performed. Co mpression and augmentation were evaluated. FINDINGS: The bilateral common femoral, superficial femoral and popliteal veins were compressible. A ugmentation was normal. Flow was shown within the deep calf vessels. IMPRESSION: No evidence of deep venous thrombus within the bilateral lower extremities. Electronically signed by: Paras Odell M.D. 08/05/2018 7:36 AM
[2018-08-05 07:40] LABS: Albumin Level 3.6 gm/dl (3.4-5.0); BUN Creatinine Ratio 26.7 (10-20); Calcium 8.6 mg/dl (8.5-10.1); Creatinine Clr Calc Pharmacy 66.8 ml/min; Est GFR (Non-African American) 62.1; Mean Corpuscular Hgb Conc 32.4 g/dL (32-36); Potassium 3.6 mmol/L (3.5-5.1)
[2018-08-05 07:43] LABS: Albumin Globulin Ratio 0.8 (0.9-2); Bilirubin,Total 0.8 mg/dl (0.2-1); Globulin 4.4 gm/dl (2.5-4.0)
--- NOTE | 2018-08-05 07:45 | CT Scan Report ---
CT ANGIOGRAPHY OF THE CHEST, PULMONARY EMBOLUS PROTOCOL CLINICAL HISTORY: Elevated d-dimer. Dyspnea. COMPARISON STUDY: No previous studies for comparison. TECHNIQUE: Following IV administration of 104 mL of Optiray-320, helical axial images of the chest we re obtained utilizing the pulmonary embolus protocol. Maximal intensity projections and sagittal and coronal reformats were viewed on an independent 3D workstation. IV contrast was administered withou t complication. Automated exposure control was utilized for the study. A dose lowering technique wa s utilized adhering to the principles of ALARA. CT DOSE: 676.82 mGy.cm FINDINGS: No pulmonary emboli are identified although the pulmonary arteries within the lower lobes are suboptimally assessed given suboptimal opacification. There is no significant contrast within the thoracic aorta although the caliber of the thoracic aorta is normal. There is moderate cardiomegaly. Extensive coronary artery calcification is noted. There are mildly enlarged mediastinal lymph nodes. There are prominent bilateral hilar lymph nodes. Subcarinal lymph node measures 1.2 cm in short axis diameter. There are several calcified thoracic lymph nodes. The central airways are patent. There is no pneumothorax or pleural effusion. There is no consolidation. Central airways are patent. There is mild bronchial wall thickening. Linear opacities suggest atelectasis. A 9 mm hypodense lesion within the upper pole the right kidney is suboptimally assessed on this exam but may reflect a hyperdense c yst. IMPRESSION: 1. No pulmonary emboli identified although lower lobe pulmonary arteries suboptimally assessed given suboptimal opacification and respiratory motion artifact. 2. Moderate cardiomegaly. Extensive coronary artery calcification. 3. Mildly enlarged mediastinal and bilateral hilar lymph nodes, a nonspecific finding. Electronically signed by: Paras Odell M.D. 08/05/2018 7:44 AM
[2018-08-05] MEDS: PANTOprazole 40 MG TAB PO SCH (08:29)
[2018-08-05] MEDS: ASPIRIN 325 MG ECTAB PO SCH (08:29)
[2018-08-05] MEDS: CARVEDILOL 12.5 MG TAB PO SCH ×2 (08:29→20:08)
[2018-08-05] MEDS: FUROSEMIDE 40 MG in SYRINGE 0 ML IV SCH ×2 (08:29→17:53)
[2018-08-05] MEDS ORDERED: PERFLUTREN LIPID MICROSPHERE (DEFINITY) IV ONE (08:36)
[2018-08-05] MEDS: POTASSIUM CHLORIDE 20 MEQ TABCR PO SCH (08:39)
[2018-08-05] MEDS: MAGNESIUM OXIDE 400 MG TAB PO SCH (08:39)
[2018-08-05] MEDS ORDERED: FUROSEMIDE 40 MG/4 ML VIAL IV SCH (09:00)
[2018-08-05] MEDS ORDERED: LISINOPRIL 20 MG TAB PO SCH (09:00)
[2018-08-05] MEDS ORDERED: HEPARIN SOD 5,000 UNIT/0.5 ML VIAL SQ SCH (09:00)
[2018-08-05] MEDS ORDERED: PIPERACILLIN/TAZOBACTAM 3.375 GM in DEXTROSE 5% 100 ML IV SCH (10:00)
--- NOTE | 2018-08-05 11:07 | Cardiology Consultation ---
Date of Consultation August 05, 2018 Assessment & Plan (1) Edema due to congestive heart failure: He presents with progressive leg swelling, although his BNP is not terribly elevated, his lung findings are minimal and his chest x-ray did not show severe edema. He may be developing right heart failure. Agree with diuresis, but watch for renal insufficiency in the setting. I will review his echocardiogram for LV and RV function. (2) Substernal chest pain: He describes some type of substernal chest discomfort, he has extensive vascular disease so would not be surprising if he has coronary artery disease. On the other hand he is not having it now and his enzymes have been negative x2. He has declined invasive evaluation in the past, I would not pursue evaluation now. (3) Afib: He has a long history of atrial fibrillation, he is not on an anticoagulant. This is by his choice. The heart rate today is low, he is on carvedilol but he is also on digoxin. I do not know if he needs to be on digoxin but I do need to get a level and I will stop it for now. He may feel better with a higher heart rate. (4) Nonischemic cardiomyopathy: He has a long-standing cardiomyopathy, this is felt to be nonischemic although he has never been evaluated invasively and he does have severe vascular disease so he could have an ischemic component. He is currently inadequately treated however that is his choice. He should have a biventricular ICD in place, that would possibly help with left ventricular function since his QRS is so wide, it would protect him from life-threatening arrhythmias and would allow us to go up on the beta-lauryn. He has declined that in the past, I did not readdress it today but if he would choose to do that he certainly is a candidate for it. In the meantime we will try to treat his cardiomyopathy with medications. History of Present Illness Reason for Consultation: CHF, Chest pain Attending Physician: Koby Rivera History of Present Illness This is a very pleasant 73-year-old gentleman, he is on mesh, with a history of atrial fibrillation since 2008. Echocardiography in 2014 showed left ventricular ejection fraction of 15-20% as well as moderate aortic stenosis. He also has severe vascular disease including occlusion of the distal abdominal aorta and peripheral arterial disease in his legs. He has a history of bifascicular block as well. Anticoagulation was attempted with warfarin however he could not comply with the management, and he has declined 1 of the newer agents therefore he has been treated with aspirin. ICD implantation has been discussed with him in the past and he has declined. He has also declined evaluation or treatment for his heart disease. He presented to the emergency room here on August 04, 2018 with complaints of chest discomfort. He also describes fluid retention, shortness of breath and leg swelling. He was admitted with congestive heart failure, troponin has been negative x2 and he was noted to be bradycardic. He is on carvedilol 12.5 mg twice daily as well as digoxin 0.25 mg daily and lisinopril 20 mg daily as well. I do not think a digoxin level was performed here and I do not see one in our office record either. His BNP was somewhat elevated but not severely so on arrival and his chest x-ray did not show clear pulmonary edema. At the time of my evaluation in the intensive care unit he appeared restless, he told me he was tired of laying in bed. He does not seem to be particularly short of breath, he does note that his legs are swollen. He is not having chest discomfort currently. Allergies Allergy/AdvReac Type Severity Reaction Status Date / Time ragweed pollen Allergy Mild Verified 08/05/18 00:09 Dust Allergy Mild Uncoded 08/05/18 00:09 Home Medications Home Medications Medication Instructions Recorded Confirmed Type aspirin 325 mg PO DAILY 08/05/18 08/05/18 History carvedilol 12.5 mg PO BID 08/05/18 08/05/18 History digoxin 250 mcg PO DAILY 08/05/18 08/05/18 History furosemide 80 mg PO DAILY 08/05/18 08/05/18 History lisinopril 20 mg PO DAILY 08/05/18 08/05/18 History Patient History Medical History History of atrial fibrillation (Chronic) CHF (congestive heart failure) (Chronic) Cardiomegaly (Chronic) Family History Other No significant family history Social History Current Living Situation: Family Current Living Situation Comment: Lives in [place] with Other Information That Helps Us Care for You: No Safety Concerns: Feels Safe At This Time Smoking Status: Former smoker Tobacco Type: cigarettes Cigarettes per Day: 1ppd Smoking End Date: 2014 Number of Years Since Quit: 4 Hx Alcohol Use: No Hx Substance Use: No Beliefs That Will Affect Care: Oriental Orthodox Communication Ability: Effective Review of Systems Negative for lightheadedness, dizziness, palpitations, presyncope or syncope. Chronic dyspnea on exertion, no exertional chest pain. No orthopnea or PND, worsening of chronic peripheral edema. No GI complaints, no bleeding. No neurologic complaints such as TIA or stroke symptoms. Other systems negative. Physical Exam 2 Vital Signs (Past 24 Hours): Last Vital Signs Temp 36.5 C 08/05/18 07:00 Pulse 51 L 08/05/18 08:00 Resp 18 08/05/18 07:00 BP 138/89 08/05/18 07:00 Pulse Ox 96 08/05/18 07:00 Physical Exam: Constitutional: Alert, cooperative and in no distress. HEENT: Unremarkable Neck: No jugular venous distention, carotid pulses are irregular but otherwise normal and equal bilaterally without bruits. Pulmonary: Clear to auscultation bilaterally. Cardiac: Irregular rhythm with no a grade 2/6 crescendo decrescendo murmur at the base, no, gallop or rub. Abdomen: Soft, nontender with normal bowel sounds. Extremities: +3 bilateral pretibial edema. Distal pulses intact. Neurologic: No focal findings. Gait is steady. Skin: No rash, ecchymoses or petechiae. Results & Data Diagnostic Findings Electrocardiogram: His admission electrocardiogram shows atrial fibrillation with a somewhat slow heart rate and a bifascicular block pattern with a very wide QRS complex. Telemetry: Atrial fibrillation with variable heart rate, often in the 30s at rest. Rarely if ever over 100. Echocardiogram: Done this morning, pending
--- NOTE | 2018-08-05 11:21 | Pharmacy Report ---
Pharmacy Abx Initial Consult - Date of Service August 05, 2018 - Pharmacy Dosing Scope Date of Consult: 08/05/18 Consultation requested by: Dr. Manley Pharmacy is consulted to initiate Vancomycin IV dosing therapy, order appropriate labs and adjust drug dose/frequency. - Subjective The patient is a 73 year old M admitted on 08/05/18 03:08. - Objective Height: 5 ft 8 in Weight: 105.5 kg (BMI 35.4) Vital Signs (Past 12hrs): Vital Signs Temp Pulse Pulse Resp BP Pulse Ox 08/05/18 08:00 51 L 08/05/18 07:00 36.5 C 66 18 138/89 96 08/05/18 04:40 36.4 C L 76 18 165/87 H 97 08/05/18 03:48 57 L 20 148/83 H 95 08/05/18 02:15 56 L 21 137/86 97 08/05/18 00:40 69 20 179/77 H 97 08/04/18 23:54 55 L 18 133/75 95 Lab Results (24hrs): Laboratory Tests (24 Hours) 08/05/18 08/05/18 08/04/18 06:48 06:48 22:25 WBC 5.20 Neut # (Auto) 3.00 Creatinine 1.16 1.38 Est Cr Clr Drug Dosing 66.8 54.9 08/04/18 22:25 WBC 6.18 Neut # (Auto) 3.67 Creatinine Est Cr Clr Drug Dosing Micro Results: 08/05/18 07:08 Blood Culture - Pending Blood 08/05/18 06:48 Blood Culture - Pending Blood - Assessment & Plan Assessment 73 year old M admitted for cellulitis/leg ulcer. Has had increased swelling in bilateral lower extremities for which he has been taking Furosemide. He has hx of peripheral artery disease. Presents with swelling and right lower extremity ulcer on anterior portion of lower leg. Ulcer has been present for approx. 1 yr. Recommendations were made in past for femoral artery bypass but patient refused. Patient's has been using household remedies to cleanse site regularly. Plan Vancomycin for treatment of cellulits/leg ulcer Vancomycin IV * Estimated PK Parameters: Vd 0.56 L/kg, Tex 0.060 hr-1, t1/2 11.6 hr, CrCl 66.8 mL/min * Loading dose: 2500 mg (~23.7 mg/kg) * Maintenance dose: 1500 mg IV (14.2 mg/kg) every 16 hours * Goal trough level for cellulitis : 10 to 15 mcg/mL * Trough level ordered for 08/07/18 @ 0530 * Will check trough level prior to css due to potential of accumulation Pharmacy will continue to follow and will adjust dose/frequency as necessary. Thank you.
--- NOTE | 2018-08-05 14:20 | Ultrasound Report ---
RIGHT LOWER EXTREMITY ARTERIAL DOPPLER ULTRASOUND CLINICAL HISTORY: known PAD, nonhealing RLE ulcer, eval PAD COMPARISON STUDY: Aortoiliac CTA with bilateral lower extremity runoff of August 08, 2014. FINDINGS: Right ankle brachial index measured 0.38 when using posterior tibial artery and 0.35 when u sing the dorsalis pedis. The left measured 0.35 when using posterior tibial artery and 0.46 when usin g the dorsalis pedis. Extensive atherosclerotic plaque within the right lower extremity is noted. The re is a right popliteal cyst that measures 6.1 x 2.3 x 4.2 cm. There is monophasic flow within the ri ght common femoral artery. No definite flow is identified within the right superficial femoral artery which suggests age indeterminate occlusion. However, occlusion of the right common femoral and super ficial femoral arteries was shown on a CTA of August 08, 2014. Minimal partial reconstitution at the level of the right popliteal artery is noted. There is dampened, monophasic flow within the right po pliteal, anterior tibial, posterior tibial, peroneal and dorsalis pedis vessels. IMPRESSION: 1. Markedly diminished bilateral ankle to brachial indices which indicates severe peripheral arterial disease. 2. Occlusion of the right superficial femoral artery. The findings age indeterminate although extensi ve vascular occlusion was shown on CTA of August 08, 2014. This could be correlated with history of interval revascularization. 3. Minimal partial reconstitution of the right calf vessels with markedly dampened, monophasic flow w ithin these vessels. 4. Monophasic flow within the right common femoral artery which raises the possibility of inflow dise ase. Electronically signed by: Paras Odell M.D. 08/05/2018 2:19 PM
--- NOTE | 2018-08-05 14:21 | Hospitalist Progress Note ---
Date of Service August 05, 2018 Assessment & Plan (1) Acute on chronic systolic heart failure: Patient with fairly long-standing chronic systolic CHF. Now decompensated. Continue IV lasix BID; he is improving from a symptom standpoint. Volume status is improved today. Repeat echo today with EF 20-25%; global hypokinesis. Moderate . Cause of systolic CHF is uncertain as we cannot rule out underlying CAD contributing as he has never had an ischemic work-up. Given his obesity, PAD, prior tobacco, etc he very easily could have undiagnosed CAD. Continue beta lauryn. Continue CHELSEA. Cardiology consult requested with Dr. Cunningham. He would likely benefit from a biV pacer/ICD - Dr. Cunningham and I discussed this in detail this am. It is uncertain patient would want one. Present on Admission?: Yes (2) Cellulitis: RLE. Mild, moderate at most. Continue IV vanco alone. Stop zosyn. But, if the leg fails to improve, then add back gram negative coverage. (3) Substernal chest pain: Very easily could have CAD. Fortunately his troponins are thus far negative. Defer w/u to cardiology. (4) RBBB: Chronic. See Dr. Cunningham's note regarding this. (5) PAD (peripheral artery disease): Known. In July 2014 a LE arteriogram was attempted by Dr. Koby Brooks. The procedure was aborted as the catheter could not be advanced into the femoral artery. [id number] a CTA of the abd/pelvis showed severe PAD of numerous vessels of the abdomen and legs. He is having claudication on a regular basis. In light of the nonhealing RLE ulcer will check arterial doppler. He would benefit from a vascular consultation. Should be on both aspirin and a statin. (6) Afib: A. fib rates are very slow. In fact he was in the 30s most of last night. Agree with Dr. Cunningham to stop the digoxin. Continue coreg but this may need adjusting as well. Patient would likely benefit from a BiV pacer/ICD as recommended by Dr. Cunningham. This would allow us to use his beta blockers more safely. He is not on chronic anticoagulation. (7) Hilar lymphadenopathy: Etiology uncertain. In light of smoking history could he have occult chest malignancy? Sarcoid? other? (8) Arterial leg ulcer: RLE - see discussion above in "PAD". (9) DVT prophylaxis: heparin. Subjective Patient reports his dyspnea is doing better today. Less orthopnea as well. no chest pain. RLE ulcer has been present for 12 months or longer. The right de la paz always has some pink skin. he reports severe claudication of both calves with walking 100-200 feet. has to stop to rest and pain resolves. Constitutional: + weight gain (at least 5-10 pounds; dry weight is ~220 pounds) Respiratory: no cough Cardiovascular: no chest pain Gastrointestinal: no abdominal pain Physical Exam 2 Vital Signs (Past 24 Hours): Last Vital Signs Temp 37.0 C 08/05/18 11:53 Pulse 71 08/05/18 11:53 Resp 20 08/05/18 11:53 BP 130/76 08/05/18 11:53 Pulse Ox 96 08/05/18 11:53 Constitutional: well developed, well nourished and + obese; no acute distress ENMT: external ear and nose normal, oropharynx normal Respiratory: Auscultation: + rales (fine, bases only) Cardiovascular: Rate/Rhythm: + bradycardic; + abnormal rhythm (irregular) Heart Sounds: normal S1, normal S2 and + murmur (1/6 RUSB/apex) Vessels: + JVD; + posterior tibial pulses abnormal and + dorsalis pedis pulses abnormal Extremities: + edema (trace b/l ); + abnormal capillary refill (3+ seconds b/l feet) popliteal pulses 1+ b/l Gastrointestinal (Abdomen): normal bowel sounds, soft, nontender, no hepatosplenomegaly Skin: 1.5 x 1cm ulcer on right distal de la paz, no drainage; there is surrounding erythema/pink skin over much of the anterior de [place] paz; slightly warm to touch; venous stasis changes b/l legs Psychiatric: A+Ox3, euthymic affect Results & Data Laboratory Results Laboratory Results - last 24 hr 08/04/18 08/04/18 08/04/18 22:25 22:25 22:25 WBC 6.18 RBC 4.19 L Hgb 13.4 L Hct 39.9 L MCV 95.2 MCH 32.0 MCHC 33.6 RDW Std Deviation 57.4 H RDW Coeff of Maria [place] 16.4 H Plt Count 139 MPV 10.9 H Immature Gran % (Auto) 0.2 Neut % (Auto) 59.4 Lymph % (Auto) 27.3 [place] % (Auto) 9.7 Eos % (Auto) 2.9 Baso % (Auto) 0.5 Immature Gran # (Auto) 0.01 Neut # (Auto) 3.67 Lymph # (Auto) 1.69 [place] # (Auto) 0.60 H Eos # (Auto) 0.18 Baso # (Auto) 0.03 RBC Morphology Unremarkable PT 11.1 INR 1.1 APTT 26.2 PTT Ratio 1.0 D-Dimer Sodium 137 Potassium 3.8 Chloride 101 Carbon Dioxide 28 Anion Gap 7.0 BUN 36 H Creatinine 1.38 Est Cr Clr Drug Dosing 54.9 Est GFR ( Amer) 58.4 Est GFR (Non-Af Amer) 50.4 BUN/Creatinine Ratio 26.1 H Glucose 107 H Calcium 8.7 Magnesium 2.0 Total Bilirubin 0.6 AST 36 ALT 56 Alkaline Phosphatase 66 Troponin I 0.034 NT-Pro-B Natriuret Pep 2441 H Total Protein 8.7 H Albumin 3.9 Globulin 4.8 H Albumin/Globulin Ratio 0.8 L Urine Color Urine Appearance Urine pH Ur Specific [place] Urine Protein Urine Glucose (UA) Urine Ketones Urine Blood Urine Nitrite Urine Bilirubin Urine Urobilinogen Ur Leukocyte Esterase Digoxin 08/04/18 08/04/18 08/05/18 22:25 22:45 06:48 WBC RBC Hgb Hct MCV MCH MCHC RDW Std Deviation RDW Coeff of [place] Plt Count MPV Immature Gran % (Auto) Neut % (Auto) Lymph % (Auto) [place] % (Auto) Eos % (Auto) Baso % (Auto) Immature Gran # (Auto) Neut # (Auto) Lymph # (Auto) [place] # (Auto) Eos # (Auto) Baso # (Auto) RBC Morphology PT INR APTT PTT Ratio D-Dimer 4150 H* Sodium Potassium Chloride Carbon Dioxide Anion Gap BUN Creatinine Est Cr Clr Drug Dosing Est GFR ( Amer) Est GFR (Non-Af Amer) BUN/Creatinine Ratio Glucose Calcium Magnesium Total Bilirubin AST ALT Alkaline Phosphatase Troponin I 0.034 NT-Pro-B Natriuret Pep Total Protein Albumin Globulin Albumin/Globulin Ratio Urine Color Yellow Urine Appearance Clear Urine pH 5.0 Ur Specific [place] 1.010 Urine Protein Negative Urine Glucose (UA) Negative Urine Ketones Negative Urine Blood Negative Urine Nitrite Negative Urine Bilirubin Negative Urine Urobilinogen Negative Ur Leukocyte Esterase Negative Digoxin 08/05/18 08/05/18 08/05/18 06:48 06:48 11:48 WBC 5.20 RBC 3.94 L Hgb 12.1 L Hct 37.4 L MCV 94.9 MCH 30.7 MCHC 32.4 RDW Std Deviation 57.0 H RDW Coeff of [place] 16.4 H Plt Count 128 L MPV 11.5 H Immature Gran % (Auto) 0.0 Neut % (Auto) 57.7 Lymph % (Auto) 26.7 [place] % (Auto) 12.3 Eos % (Auto) 2.7 Baso % (Auto) 0.6 Immature Gran # (Auto) 0.00 Neut # (Auto) 3.00 Lymph # (Auto) 1.39 [place] # (Auto) 0.64 H Eos # (Auto) 0.14 Baso # (Auto) 0.03 RBC Morphology PT INR APTT PTT Ratio D-Dimer Sodium 138 Potassium 3.6 Chloride 102 Carbon Dioxide 30 Anion Gap 6.0 BUN 31 H Creatinine 1.16 Est Cr Clr Drug Dosing 66.8 Est GFR ( Amer) 72.0 Est GFR (Non-Af Amer) 62.1 BUN/Creatinine Ratio 26.7 H Glucose 99 Calcium 8.6 Magnesium Total Bilirubin 0.8 AST 27 ALT 47 Alkaline Phosphatase 52 Troponin I NT-Pro-B Natriuret Pep Total Protein 8.0 Albumin 3.6 Globulin 4.4 H Albumin/Globulin Ratio 0.8 L Urine Color Urine Appearance Urine pH Ur Specific [place] Urine Protein Urine Glucose (UA) Urine Ketones Urine Blood Urine Nitrite Urine Bilirubin Urine Urobilinogen Ur Leukocyte Esterase Digoxin 1.0 Diagnostic Findings echo - global hypokinesis - ef 20-25%, dilated IVC _ (1) Cellulitis Site of cellulitis: extremity Site of cellulitis of extremity: lower extremity Laterality: right Qualified Code(s): L03.115 - Cellulitis of right lower limb (2) Afib Atrial fibrillation type: chronic Qualified Code(s): I48.2 - Chronic atrial fibrillation
[2018-08-05] MEDS ORDERED: ALBUTEROL HFA 8 GM INHALER INH PRN (14:53)
--- NOTE | 2018-08-05 14:53 | Pulmonary Consultation ---
Date of Consultation August 05, 2018 Assessment & Plan (1) Hilar lymphadenopathy: Impression: 1. COPD, not in exacerbation, asymptomatic and has not been treated. 2. Mediastinal lymphadenopathy, subcentimeter, sub-pathologic, does not require any further workup. 3. Diastolic heart failure. 4. Peripheral arterial disease. Plan: 1. Continue current treatment. 2. Start the patient on Spiriva and as needed albuterol. 3. He will need pulmonary function test as an outpatient. 4. No further recommendations from pulmonary standpoint. 5. The mediastinal lymphadenopathy are sub-pathologic, does not require further workup. Thank you, will follow as needed. History of Present Illness Reason for Consultation: Mediastinal lymphadenopathy. Requesting Physician: Dr. Rivera Attending Physician: Koby Rivera History of Present Illness Dear Dr. Rivera: Thank you for the kind referral of Mr. Early to pulmonary service. This is 73-year-old gentleman with a history of A. fib, rate controlled, diastolic heart failure, lower extremity cellulitis with recurrence, peripheral arterial disease, history of smoking for over than 50 pack years, quit 5 years ago, presented to the hospital with left-sided chest pain accompanied with increasing shortness of breath and increasing swelling in his lower extremities. The patient was treated initially for CHF, and found to have what appeared to be chronic cellulitic changes in the lower extremities. The patient has been followed by Dr. Verma in the cardiology clinic in the past. The patient denies any shortness of breath up until a month ago. He denies any chest pain prior to this presentation. The patient did not have any nausea or vomiting, no dizziness or near syncopal episode, he denies any wheezing, he does have occasional cough without sputum production, swelling in his lower extremities has been worsened for the past month. His exercise capacity is approximately 100 feet. He does not use any oxygen and he does not have any history of industrial exposure in the past. Review of system apart from above was otherwise unremarkable. His past medical history as above, family history is significant for congestive heart failure and his parents, and he is ex-smoker with more than [id number] history of smoking. When the patient admitted to the hospital, underwent workup including CAT scan of the chest as well which showed COPD changes and mediastinal lymphadenopathy, I was asked to evaluate the patient that regard. Allergies Allergy/AdvReac Type Severity Reaction Status Date / Time ragweed pollen Allergy Mild Verified 08/05/18 00:09 Dust Allergy Mild Uncoded 08/05/18 00:09 Home Medications Home Medications Medication Instructions Recorded Confirmed Type aspirin 325 mg PO DAILY 08/05/18 08/05/18 History carvedilol 12.5 mg PO BID 08/05/18 08/05/18 History digoxin 250 mcg PO DAILY 08/05/18 08/05/18 History furosemide 80 mg PO DAILY 08/05/18 08/05/18 History lisinopril 20 mg PO DAILY 08/05/18 08/05/18 History Patient History Medical History History of atrial fibrillation (Chronic) CHF (congestive heart failure) (Chronic) Cardiomegaly (Chronic) Family History Other No significant family history Social History Current Living Situation: Family Current Living Situation Comment: Lives in [place] with Other Information That Helps Us Care for You: No Safety Concerns: Feels Safe At This Time Smoking Status: Former smoker Tobacco Type: cigarettes Cigarettes per Day: 1ppd Smoking End Date: 2014 Number of Years Since Quit: 4 Hx Alcohol Use: No Hx Substance Use: No Beliefs That Will Affect Care: Adventist Communication Ability: Effective Review of Systems Review of systems including 12 systems has been reviewed unremarkable except for the above in the first section. Physical Exam 2 Vital Signs (Past 24 Hours): Last Vital Signs Temp 37.0 C 08/05/18 11:53 Pulse 71 08/05/18 11:53 Resp 20 08/05/18 11:53 BP 130/76 08/05/18 11:53 Pulse Ox 96 08/05/18 11:53 Physical Exam: Vital signs are stable, S1-S2 regular rate and rhythm, clear lung field, no JVP, abdomen is benign, edema in the periphery, surgically wrapped on the right. Neurologically he is intact. He is appropriate for his age. Results & Data Laboratory Results Labs were reviewed personally, no leukocytosis, platelets are 128, d-dimer slightly elevated and BUN/creatinine are abnormal as well. Diagnostic Findings CAT scan of the chest which I reviewed personally showed cardiomegaly, COPD changes, and mild subcentimeter lymphadenopathy.
[2018-08-05] MEDS ORDERED: DIGOXIN 0.25 MG TAB PO SCH (16:00)
[2018-08-05] MEDS: TIOTROPIUM BROMIDE 5 PUFF/90 MCG INH INH SCH (16:25)
[2018-08-05] MEDS: HEPARIN SOD 5,000 UNIT/0.5 ML VIAL SQ SCH (20:09)
[2018-08-05] MEDS ORDERED: VANCOMYCIN HCL 1,500 MG in SODIUM CHLORIDE 0.9% 500 ML IV SCH (22:00)
[2018-08-06] MEDS: HEPARIN SOD 5,000 UNIT/0.5 ML VIAL SQ SCH ×3 (05:50→20:16)
[2018-08-06 07:39] LABS: BUN Creatinine Ratio 20.6 (10-20); Creatinine Clr Calc Pharmacy 53.8 ml/min; Est GFR (African American) 55.4; Est GFR (Non-African American) 47.8; Magnesium 2.1 mg/dl (1.8-2.4); Potassium 3.9 mmol/L (3.5-5.1)
[2018-08-06] MEDS: CARVEDILOL 12.5 MG TAB PO SCH ×2 (09:33→20:16)
[2018-08-06] MEDS: ASPIRIN 325 MG ECTAB PO SCH (09:34)
[2018-08-06] MEDS: PANTOprazole 40 MG TAB PO SCH (09:34)
[2018-08-06] MEDS: FUROSEMIDE 40 MG in SYRINGE 0 ML IV SCH ×2 (09:34→18:01)
[2018-08-06] MEDS: MAGNESIUM OXIDE 400 MG TAB PO SCH (09:35)
[2018-08-06] MEDS: POTASSIUM CHLORIDE 20 MEQ TABCR PO SCH (09:35)
[2018-08-06] MEDS: TIOTROPIUM BROMIDE 5 PUFF/90 MCG INH INH SCH (09:36)
--- NOTE | 2018-08-06 11:00 | Pharmacy Report ---
Pharmacy Abx Dose Short Note - Date of Service August 06, 2018 - Assessment & Plan Assessment 73 year old M receiving vancomycin for treatment of SSTI. Trough level scheduled for tomorrow, however, will decrease the dose empirically given scr bump and higher BMI. Further adjustments may be needed based on level/ scr tomorrow. Day # 2 of antimicrobial therapy. Plan Vancomycin * Change to 1250 mg IV every 16 hours * Trough or random level ordered for: 08/07/18 @4528 Pharmacy will continue to follow and will adjust dose/frequency as necessary. Thank you.
--- NOTE | 2018-08-06 11:40 | Consultation ---
Date of Consultation August 06, 2018 Assessment & Plan (1) PAD (peripheral artery disease): Pt with known severe PAD and a nonhealing RLE venous ulceration. Pt's toes remain normal colored, pink and warm to touch with good cap refill. Pt discussed with Dr Reyes, who reviewed pt's imaging as well. Surgical options are limited d/t pt's severe widespread arterial disease. Would consider aortobifem vs axillobifem bypass and possible BLE fem-pop Bypasses as well, but only if limb threatening ischemia develops. D/T multiple comorbidities, pt would be high risk for any surgical options at this time. After discussion with pt, he does not wish to have surgery of any kind. Pt and family are aware to call office if he develops rest pain or gangrene of toes as surgical intervention would need to be revisited for limb salvage at that time. Recommend local wound care/abx per medicine/wound clinic. Please call if needed Patient was seen, examined, and chart reviewed. Agree with exam and treatment plan of the Vascular PA. Present on Admission?: Yes History of Present Illness Reason for Consultation: PAD, RLE ulcer Attending Physician: Krupa Moe MD History of Present Illness 73 yo m with hx of CHF, a fib, nonischemic cardiomyopathy, PAD, HTN, admitted with infection of his RLE ulceration, seen in consultation today for PAD and ulcer. Pt states has had ulceration for past 15 months or so. Was previously seeing the [facility] for Wound Care, but has not seen them in some time. Per family, his wound would nearly heal, then worsen. Noted increased edema and erythema a few days ago and came to [facility]. States his leg appears improved since arrival. Pt admits severe BL calf claudication at less then 100 ft. States he underwent attempted procedure by Dr Brooks in past, but was unable to access the arteries, so nothing was able to be done. Pt deneis rest pain or discoloration of toes. Admits edema of BLE, worse when standing for long periods. Denies FARR, fever, chills, chest pain, SOB, abd pain, N/V, other complaints. Imaging demonstrates severe BL SFA, CAUL PULLER disease, as well as distal disease. Review of old imaging indicates aortoiliac occlusion. Allergies Allergy/AdvReac Type Severity Reaction Status Date / Time ragweed pollen Allergy Mild Verified 08/05/18 00:09 Dust Allergy Mild Uncoded 08/05/18 00:09 Home Medications Home Medications Medication Instructions Recorded Confirmed Type aspirin 325 mg PO DAILY 08/05/18 08/05/18 History carvedilol 12.5 mg PO BID 08/05/18 08/05/18 History digoxin 250 mcg PO DAILY 08/05/18 08/05/18 History furosemide 80 mg PO DAILY 08/05/18 08/05/18 History lisinopril 20 mg PO DAILY 08/05/18 08/05/18 History Patient History Medical History History of atrial fibrillation (Chronic) CHF (congestive heart failure) (Chronic) Cardiomegaly (Chronic) Family History Other No significant family history Social History Current Living Situation: Family Current Living Situation Comment: Lives in [place] with Other Information That Helps Us Care for You: No Safety Concerns: Feels Safe At This Time Smoking Status: Former smoker Tobacco Type: cigarettes Cigarettes per Day: 1ppd Smoking End Date: 2014 Number of Years Since Quit: 4 Hx Alcohol Use: No Hx Substance Use: No Beliefs That Will Affect Care: Adventist Communication Ability: Effective Review of Systems Constitutional: no fever, no chills, no sweats, no fatigue, no malaise and no weight loss Eyes: no blind spots and no problem reported Ear, Nose, Mouth, Throat: no hearing loss and no sore throat Respiratory: + dyspnea on exertion; no cough, no dyspnea and no hemoptysis Cardiovascular: + edema; no chest pain, no palpitations, no syncope, no claudication and no problem reported Gastrointestinal: no abdominal pain, no early satiety, no nausea, no vomiting, no cramping, no change in bowel habits, no diarrhea/loose stools and no blood in stools Musculoskeletal: no back pain, no joint pain, no swelling and no muscle weakness Integumentary: + skin ulcer and + erythema; no rash Neurologic: no localized weakness, no generalized weakness, no paralysis, no loss of sensation, no tingling, no numbness, no paresthesia, no seizure-like activity, no syncope, no headache(s) and no confusion Psychiatric: as per Subjective / HPI Hematologic / Lymphatic: no easy bleeding, no easy bruising and no unexplained weight loss Physical Exam 2 Vital Signs (Past 24 Hours): Last Vital Signs Temp 37.0 C 08/06/18 07:40 Pulse 80 08/06/18 07:40 Resp 18 08/06/18 07:40 BP 164/98 H 08/06/18 07:40 Pulse Ox 95 08/06/18 07:40 Constitutional: WD/WN, vitals as above well developed, well nourished, + ill appearing (chronically), + obese, well groomed, + disheveled, cooperative and comfortable; not in distress Eyes: PERRL, conjunctivae normal, anicteric sclerae EOM intact bilaterally ENMT: external ear and nose normal, oropharynx normal Ears: no hearing impairment Nose: no nasal discharge Throat: no posterior oropharynx abnormality Neck: trachea midline, no thyromegaly no tracheal deviation, no neck crepitus and neck nontender Respiratory: able to speak in complete sentences; does not use accessory muscles, no cough and not tachypneic Auscultation: lungs clear to auscultation bilaterally, + diminished lung sounds and + wheezes; no rhonchi Cardiovascular: Rate/Rhythm: regular rate and regular rhythm Heart Sounds: + murmur; no gallop Vessels: + carotid bruit, femoral pulses present (L femoral +1, RLE nonpalpable), brachial pulses present and radial pulses present ; no femoral bruit, + abnormal peripheral pulses, + posterior tibial pulses abnormal and + dorsalis pedis pulses abnormal (however, BL toes warm and pink, + cap refill 4 seconds) Extremities: + pedal edema, + edema and + varicosities Chest (Breasts): Chest: normal inspection of chest Gastrointestinal (Abdomen): normal bowel sounds, soft, nontender, no hepatosplenomegaly Inspection/Auscultation: abdomen normal to inspection and normal bowel sounds; abdomen not distended Percussion/Palpation: abdomen soft ; abdomen nontender, no guarding, abdomen not rigid and no abdominal mass Musculoskeletal: no cyanosis or clubbing, extremities motor strength 5/5 Head/Neck/Chest: normocephalic, head atraumatic and neck supple; no chest tenderness Extremities: extremities normal to inspection, strength 5/5 throughout and + chronic stasis changes; full ROM of extremities Skin: normal turgor, + rash, + wound (RLE anterior mid de la paz with ulceration noted. pink wound edges, without obvious granulation. + local erythema and tenderness) and + erythema; no induration, no eschar and no pallor Trauma: no hematoma and no puncture Neurologic: moves all extremities and awake; no focal motor deficits and not confused Speech / Cognition: no expressive aphasia and no receptive aphasia Motor/Sensory: no tremor and no sensory deficit Cranial Nerves: EOM intact bilaterally, normal facial strength and tongue midline Psychiatric: Orientation: alert, oriented x 3, oriented to person, oriented to place, oriented to time and cooperative Apperance: appropriately dressed, appropriately groomed and appeared stated age Affect: + depressed affect, + flat affect and + irritable affect Thought Process: goal directed thought process, linear/logical thought process and clear/coherent thought process Cognition: recent memory grossly intact, remote memory grossly intact, attention grossly intact and language grossly intact Estimated Intelligence: average estimated intelligence Lymphatic: no lymphedema
--- NOTE | 2018-08-06 11:44 | Cardiology Progress Note ---
Date of Service August 06, 2018 Assessment & Plan (1) Edema due to congestive heart failure: He presents with progressive leg swelling, although his BNP was not terribly elevated, his lung findings are minimal and his chest x-ray did not show severe edema. His echo suggests good right ventricular function although it was poorly visualized. Agree with diuresis, but watch for renal insufficiency in the setting. (2) Substernal chest pain: He describes some type of substernal chest discomfort, he has extensive vascular disease so would not be surprising if he has coronary artery disease. On the other hand he is not having it now and his enzymes have been negative x2. He has declined invasive evaluation in the past, I would not pursue evaluation now. (3) Afib: He has a long history of atrial fibrillation, he is not on an anticoagulant. This is by his choice. The heart rate today is better off digoxin, he is on carvedilol at a moderate dose. I would leave him off of digoxin to allow an increase in heart rate which I doubt will be excessive. He may feel better with a higher heart rate. (4) Nonischemic cardiomyopathy: He has a long-standing cardiomyopathy, this is felt to be nonischemic although he has never been evaluated invasively and he does have severe vascular disease so he could have an ischemic component. He is currently inadequately treated however that is his choice. He should have a biventricular ICD in place, that would possibly help with left ventricular function since his QRS is so wide, it would protect him from life-threatening arrhythmias and would allow us to go up on the beta-lauryn. He has declined that in the past, I did not readdress it today but if he would choose to do that he certainly is a candidate for it. In the meantime we will try to treat his cardiomyopathy with medications. Subjective He seems to be feeling a little better today, he is not short of breath but has not been very active. He feels that his swelling has decreased. Physical Exam 2 Vital Signs (Past 24 Hours): Last Vital Signs Temp 37.0 C 08/06/18 07:40 Pulse 80 08/06/18 07:40 Resp 18 08/06/18 07:40 BP 164/98 H 08/06/18 07:40 Pulse Ox 95 08/06/18 07:40 Physical Exam: Constitutional: Alert, cooperative and in no distress. HEENT: Unremarkable Neck: No jugular venous distention, carotid pulses are irregular but otherwise normal and equal bilaterally without bruits. Pulmonary: Clear to auscultation bilaterally. Cardiac: Irregular rhythm with no a grade 2/6 crescendo decrescendo murmur at the base, no, gallop or rub. Abdomen: Soft, nontender with normal bowel sounds. Extremities: +1 bilateral pretibial edema. Neurologic: No focal findings. Gait is steady. Skin: No rash, ecchymoses or petechiae. Wound on right de [place] paz. Results & Data Diagnostic Findings Telemetry: Atrial fibrillation, heart rate has increased somewhat since yesterday. Still well controlled. _ (1) Afib Atrial fibrillation type: chronic Qualified Code(s): I48.2 - Chronic atrial fibrillation
[2018-08-06] MEDS: COLLAGENASE OINT 30 GM TUBE EXT SCH (13:01)
[2018-08-06] MEDS: VANCOMYCIN HCL 1,250 MG in SODIUM CHLORIDE 0.9% 250 ML IV SCH (14:31)
--- NOTE | 2018-08-06 20:14 | Hospitalist Progress Note ---
Date of Service August 06, 2018 Assessment & Plan (1) Acute on chronic systolic heart failure: Patient with fairly long-standing chronic systolic CHF. Now decompensated. Improved today, less lower extremity edema, still tachypneic which could be from COPD Is indeed diuresing but I's and O's were recorded as he was urinating into the toilet-he is now recording them and has put out 1 L in the last 6 hours Will hold IV lasix BID given rising creatinine-await BMP in the morning Repeat echo this admission with EF 20-25%; global hypokinesis. Moderate . Cause of systolic CHF is uncertain as we cannot rule out underlying CAD contributing as he has never had an ischemic work-up. Given his obesity, PAD, prior tobacco, etc he very easily could have undiagnosed CAD. Continue beta lauryn. Holding ACEi for rising creatinine. Cardiology consult requested with Dr. Cnuningham. He would likely benefit from a biV pacer/ICD -the patient is considering this and would like to talk to his family (2) PAD (peripheral artery disease): Known. In July 2014 a LE arteriogram was attempted by Dr. Koby Brooks. The procedure was aborted as the catheter could not be advanced into the femoral artery. [id number] a CTA of the abd/pelvis showed severe PAD of numerous vessels of the abdomen and legs. He is having claudication on a regular basis. In light of the nonhealing RLE ulcer an arterial doppler was checked which showed occlusion of the superficial femoral artery and monophasic flow throughout. Vascular surgery does agree that he could benefit from revascularization, however he is too high risk and would not proceed unless he developed a gangrenous or ischemic limb Is on aspirin, but is not on statin-unclear reason why? Appreciate vascular surgery consultation (3) Cellulitis: RLE. Mild, moderate at most. Does seem to be improving Continue IV vanco alone. Have since discontinued the Zosyn. But, if the leg fails to improve, then add back gram negative coverage. (4) Atrial fibrillation with normal ventricular rate: A. fib rates were very slow in the 30s consistently, now improved with stopping the digoxin Continue coreg at current dose -Continue telemetry monitoring Patient would likely benefit from a BiV pacer/ICD as recommended by Dr. Cunningham. This would allow us to use his beta blockers more safely. He is not on chronic anticoagulation due to his choice. (5) Substernal chest pain: Very easily could have CAD. Fortunately his troponins are thus far negative x3. Defer w/u to cardiology. Echocardiogram without wall motion abnormalities No further ischemic workup at this time (6) ROBERT (dyspnea on exertion): Secondary to acute CHF and likely COPD -Treating for both (7) Edema due to congestive heart failure: Improving with IV diuresis (8) Hilar lymphadenopathy: Etiology uncertain. Pulmonology saw him and said it was subcentimeter and no further workup is necessary CHELSEA level is pending as ordered on admission and workup for sarcoidosis (9) RBBB: Chronic. See Dr. Cunningham's note regarding this. (10) COPD with acute exacerbation: Continue albuterol and make scheduled Continue Spiriva Appreciate pulmonology consultation (11) Leg ulcer: Venous ulcer of the right lower extremity-nonhealing for quite a while- appreciate vascular consultation -Continue local wound care (12) DVT prophylaxis: Subcu heparin Disposition-remain on telemetry and in hospital likely for 1-2 more days Subjective Patient reports his leg swelling is much improved and his leg wound and cellulitis look better, however he still short of breath. He is wondering if he can have a puff of his albuterol. He reports he wants to talk to his family more about the biventricular pacer that cardiology is referring to. Telemetry with improved rates and not as much bradycardia today, with atrial fibrillation in the 70s, PVCs, low was only 39 He is putting out quite a bit of urine today but was urinating into the toilet until this afternoon. Since 2:00, he is put out 1 L of urine that he showed me in the room. Review of Systems All systems reviewed & are unremarkable except as noted in HPI & below Physical Exam 2 Vital Signs (Past 24 Hours): Last Vital Signs Temp 36.6 C 08/06/18 19:43 Pulse 60 08/06/18 19:43 Resp 20 08/06/18 19:43 BP 160/81 H 08/06/18 19:43 Pulse Ox 96 08/06/18 19:43 Constitutional: WD/WN, vitals as above Eyes: PERRL, conjunctivae normal, anicteric sclerae ENMT: Ears: no hearing impairment Neck: trachea midline, no thyromegaly Respiratory: + tachypneic (With fluent sentences) Auscultation: + diminished lung sounds (Throughout); no crackles and no wheezes Cardiovascular: Rate/Rhythm: regular rate; + abnormal rhythm (Irregularly irregular) Heart Sounds: + murmur (2/6 at the RUSB, systolic) Extremities : + edema (Trace pitting edema in the legs bilaterally with chronic venous stasis changes, nonpalpable right pedal pulses) Gastrointestinal (Abdomen): normal bowel sounds, soft, nontender, no hepatosplenomegaly Musculoskeletal: Extremities: + clubbing (Of all fingers); no cyanosis Skin: + ulcer (Venous ulcer of the right anterior leg with surrounding erythema that is receding from drawn marker line) Neurologic: moves all extremities and awake; no focal motor deficits Psychiatric: A+Ox3, euthymic affect Results & Data Laboratory Results 08/06/18 Range/Units 06:49 Sodium 139 (136-145) mmol/L Potassium 3.9 (3.5-5.1) mmol/L Chloride 103 (98-107) mmol/L Carbon Dioxide 28 (21-32) mmol/L Anion Gap 9.0 (3-11) BUN 30 H (7-18) mg/dl Creatinine 1.44 H (0.6-1.4) mg/dl Est Cr Clr Drug Dosing 53.8 ml/min Est GFR ( Amer) 55.4 Est GFR (Non-Af Amer) 47.8 BUN/Creatinine Ratio 20.6 H (10-20) Glucose 103 H (70-99) mg/dl Calcium 9.0 (8.5-10.1) mg/dl Magnesium 2.1 (1.8-2.4) mg/dl _ (1) Cellulitis Site of cellulitis: extremity Site of cellulitis of extremity: lower extremity Site of cellulitis of trunk: Laterality: right Qualified Code(s): L03.115 - Cellulitis of right lower limb
[2018-08-06] MEDS: ALBUTEROL HFA 8 GM INHALER INH SCH (21:18)
[2018-08-07] MEDS: ALBUTEROL HFA 8 GM INHALER INH SCH ×3 (00:11→12:16)
[2018-08-07] MEDS ORDERED: VANCOMYCIN TROUGH ONE (05:30)
[2018-08-07] MEDS: HEPARIN SOD 5,000 UNIT/0.5 ML VIAL SQ SCH ×2 (05:59→14:18)
[2018-08-07] MEDS: VANCOMYCIN HCL 1,250 MG in SODIUM CHLORIDE 0.9% 250 ML IV SCH (06:01)
[2018-08-07 06:39] LABS: Creatinine Clr Calc Pharmacy 58.9 ml/min; Est GFR (African American) 61.6; Est GFR (Non-African American) 53.1; Magnesium 2.3 mg/dl (1.8-2.4); Potassium 4.3 mmol/L (3.5-5.1)
[2018-08-07] MEDS: MAGNESIUM OXIDE 400 MG TAB PO SCH (08:10)
[2018-08-07] MEDS: PANTOprazole 40 MG TAB PO SCH (08:10)
[2018-08-07] MEDS: POTASSIUM CHLORIDE 20 MEQ TABCR PO SCH (08:10)
[2018-08-07] MEDS: CARVEDILOL 12.5 MG TAB PO SCH (08:10)
[2018-08-07] MEDS: TIOTROPIUM BROMIDE 5 PUFF/90 MCG INH INH SCH (08:11)
[2018-08-07] MEDS: ASPIRIN 325 MG ECTAB PO SCH (08:11)
[2018-08-07] MEDS: COLLAGENASE OINT 30 GM TUBE EXT SCH (08:11)
--- NOTE | 2018-08-07 09:24 | Pharmacy Report ---
Pharmacy Abx Dose Short Note - Date of Service August 07, 2018 - Assessment & Plan Assessment 73 year old M receiving vancomycin for treatment of SSTI. Trough level within range. Scr improved somewhat from yesterday. However, given fluctuating renal function and high BMI, will recheck a level to assess current dosing at steady state. Day # 3 of antimicrobial therapy. Plan Vancomycin * Trough level of 15.3 mcg/mL is therapeutic * Continue dose of 1250 mg IV every 16 hours * Trough or random level ordered for: 08/09/18 @1330. Pharmacy will continue to follow and will adjust dose/frequency as necessary. Thank you.
[2018-08-07] MEDS: FUROSEMIDE 40 MG in SYRINGE 0 ML IV SCH (10:13)
--- NOTE | 2018-08-07 15:37 | Cardiology Progress Note ---
Date of Service August 07, 2018 Assessment & Plan (1) Edema due to congestive heart failure: He presented with progressive leg swelling, although his BNP was not terribly elevated, his lung findings were minimal and his chest x-ray did not show severe edema. His echo suggests good right ventricular function although it was poorly visualized. He does not have much edema now, and although he did not lose much weight perhaps it has redistributed from his legs. I do not think he is in a lot of heart failure currently and is probably safe for him to go home. (2) Substernal chest pain: He describes some type of substernal chest discomfort, he has extensive vascular disease so would not be surprising if he has coronary artery disease. On the other hand he is not having it now and his enzymes have been negative x2. He has declined invasive evaluation in the past, I would not pursue evaluation now. (3) Afib: He has a long history of atrial fibrillation, he is not on an anticoagulant. This is by his choice. The heart rate today is better off digoxin, he is on carvedilol at a moderate dose. I would leave him off of digoxin to allow an increase in heart rate which I doubt will be excessive. He may feel better with a higher heart rate. I reviewed anticoagulation with them , they do not feel that he can handle warfarin (was already tried) but they seem willing to consider the newer agents if they are not too expensive. He is getting some type of medical assistance so that is a possibility. (4) Nonischemic cardiomyopathy: He has a long-standing cardiomyopathy, this is felt to be nonischemic although he has never been evaluated invasively and he does have severe vascular disease so he could have an ischemic component. He is currently inadequately treated however that is his choice. He should have a biventricular ICD in place, that would possibly help with left ventricular function since his QRS is so wide, it would protect him from life-threatening arrhythmias and would allow us to go up on the beta-lauryn. He has declined that in the past, I did readdress it today but if he would like to go home and discuss it with his children and review payment options. In the meantime we will try to treat his cardiomyopathy with medications. Subjective He is feeling better today, he is restless and anxious to go home. Denies orthopnea. Physical Exam 2 Vital Signs (Past 24 Hours): Last Vital Signs Temp 36.4 C L 08/07/18 11:04 Pulse 60 08/07/18 11:04 Resp 18 08/07/18 11:04 BP 132/64 08/07/18 11:04 Pulse Ox 94 08/07/18 11:04 Physical Exam: Constitutional: Alert, cooperative and in no distress. Pulmonary: Clear to auscultation bilaterally. Cardiac: Irregular rhythm with a grade 2/6 crescendo decrescendo murmur at the base, no gallop or rub. Abdomen: Soft, nontender with normal bowel sounds. Extremities: +1 bilateral pedal edema. Skin: No rash, ecchymoses or petechiae. Results & Data Diagnostic Findings Telemetry: Atrial fibrillation, heart rate is a little bit better off of digoxin although still gets somewhat slow at night. _ (1) Afib Atrial fibrillation type: chronic Qualified Code(s): I48.2 - Chronic atrial fibrillation
--- NOTE | 2018-08-07 16:14 | Discharge Summary ---
Date of Service August 07, 2018 Admission HPI Per Admitting Provider Chris Schmidt is a 73 y.o male with history of heart failure, PAD, and Afib who presents to the ED after having an episode of left-sided chest pain. History per patient and his . States that over the past two weeks he has noticed increased swelling in bilateral lower extremity but has been taking Lasix 80mg PO daily. Does not miss doses of medication. Per he sleeps in the recliner most nights over the past 10 years. Also reports non-productive cough x 2 days and "feeling sloshing around inside my chest and belly". On 08/04 reports "fluid in my chest" followed by chest pain during the evening described as aching in sensation and not resolving. He did not take medication to relieve pain in chest but reports that he doubled his dose of lasix and symptoms persisted. Follows with cardiology, Dr. Verma. Additional history of PAD with right lower extremity ulcer on anterior portion of lower leg. Ulcer has been present x 1 year. Per recommendations were made in the past for femoral artery bypass but Mr. Schmidt refused surgery. Wound care has not been helpful and Mrs. Schmidt has been using household remedies, Vitamin O, to cleanse the site regularly. ED course: Lasix 80 IV given once, CXR, CTA, and Venous Doppler obtained. Principal Diagnosis Acute on chronic systolic CHF, right leg cellulitis Discharge Exam Constitutional WD/WN, vitals as above Eyes PERRL, conjunctivae normal, anicteric sclerae ENMT Ears: no hearing impairment Neck trachea midline, no thyromegaly Respiratory Auscultation: no diminished lung sounds, no crackles and no wheezes Cardiovascular Rate/Rhythm: regular rate; + abnormal rhythm (Irregularly irregular) Heart Sounds: + murmur (2/6 at the RUSB, systolic) Extremities: + edema (Trace pitting edema in the legs bilaterally with chronic venous stasis changes, nonpalpable right pedal pulses) Gastrointestinal (Abdomen) normal bowel sounds, soft, nontender, no hepatosplenomegaly Musculoskeletal Extremities: + clubbing (Of all fingers); no cyanosis Skin + ulcer (Venous ulcer of the right anterior leg with surrounding erythema that is receding from drawn marker line) Neurologic moves all extremities and awake; no focal motor deficits Psychiatric A+Ox3, euthymic affect Discharge Data Allergies Allergy/AdvReac Type Severity Reaction Status Date / Time ragweed pollen Allergy Mild Verified 08/05/18 00:09 Dust Allergy Mild Uncoded 08/05/18 00:09 Consultations Pulmonology Vascular Surgery Cardiology Routine Procedures Performed Echocardiogram Ordered Studies 08/05/18 00:17 CT angio chest PE protocol Urgent 08/05/18 00:42 US venous doppler LE BI Stat 08/05/18 10:40 US arterial duplex LE RT Routine Chest x-ray Hospital Course (1) Acute on chronic systolic heart failure: Patient with fairly long-standing chronic systolic CHF. Came in and was decompensated. Continues to improve, less lower extremity edema , is diuresing despite the fact that his weight appears to have gone up I's and O's were not accurately recorded as he was urinating into the toilet Received IV Lasix 40 mg twice daily throughout hospital stay Convert to Lasix 80 mg p.o. twice daily times 1 week and then return to 80 mg once daily after that -Needs close follow-up with cardiology in the outpatient office Repeat echo this admission with EF 20-25%; global hypokinesis. Moderate . Cause of systolic CHF is uncertain as we cannot rule out underlying CAD contributing as he has never had an ischemic work-up. Given his obesity, PAD, prior tobacco, etc he very easily could have undiagnosed CAD. Continue beta lauryn. Held ACEi for rising creatinine which is now improved today-can restart lisinopril. Cardiology consult requested with Dr. Cunningham-recommendations appreciated. He would likely benefit from a biV pacer/ICD -the patient is considering this and would like to talk to his family-he will decide as an outpatient Stable for discharge to home (2) PAD (peripheral artery disease): Known. In July 2014 a LE arteriogram was attempted by Dr. Koby Brooks. The procedure was aborted as the catheter could not be advanced into the femoral artery. [id number] a CTA of the abd/pelvis showed severe PAD of numerous vessels of the abdomen and legs. He is having claudication on a regular basis. In light of the nonhealing RLE ulcer an arterial doppler was checked which showed occlusion of the superficial femoral artery and monophasic flow throughout. Vascular surgery does agree that he could benefit from revascularization, however he is too high risk and would not proceed unless he developed a gangrenous or ischemic limb Is on aspirin, but is not on statin-unclear reason why? Will defer to PCP Appreciate vascular surgery consultation (3) Cellulitis: RLE. Continues to improve today Received IV vancomycin and will convert to p.o. Keflex and doxycycline to finish out a 7-day course on discharge (4) Atrial fibrillation with normal ventricular rate: A. fib rates were very slow in the 30s consistently, now improved with stopping the digoxin Continue coreg at current dose -Permanently discontinue the digoxin Patient would likely benefit from a BiV pacer/ICD as recommended by Dr. Cunningham. This would allow us to use his beta blockers more safely. He is not on chronic anticoagulation due to his choice. (5) Substernal chest pain: Very easily could have CAD. Fortunately his troponins are thus far negative x3. Defer w/u to cardiology. Echocardiogram without wall motion abnormalities No further ischemic workup at this time (6) ROBERT (dyspnea on exertion): Secondary to acute CHF and likely COPD -Treating for both (7) Edema due to congestive heart failure: Improving with IV diuresis (8) Hilar lymphadenopathy: Etiology uncertain. Pulmonology saw him and said it was subcentimeter and no further workup is necessary CHELSEA level is pending as ordered on admission and workup for sarcoidosis (9) RBBB: Chronic. See Dr. Cunningham's note regarding this. (10) COPD with acute exacerbation: Continue albuterol and make scheduled Continue Spiriva Appreciate pulmonology consultation (11) Leg ulcer: Venous ulcer of the right lower extremity-nonhealing for quite a while- appreciate vascular consultation -Continue local wound care (12) Aortic stenosis: Moderate Routinely followed as an outpatient (13) MICHAEL (acute kidney injury): Had mild rise in creatinine 1.4 with IV Lasix, now improved on the day of discharge (14) Venous ulcer: As above the right leg We will continue wound care upon discharge (15) DVT prophylaxis: Subcu heparin was provided Disposition-stable for discharge to home Total Time Total Time Spent Total Time Spent (In Minutes): Greater than 30 minutes Total Time Includes: Examination of the Patient, Discharge Planning, Medication Reconciliation and Communication With Other Providers (Cardiology) Discharge Plan Discharge Items Patient Disposition: Home - Self-Care Reason For Visit: HEART FAILURE EXACERBATION Discharge Diagnosis: Acute congestive heart failure, leg cellulitis Condition: Good Discharge Goals: Decrease discomfort, Diagnostic testing, Improve disease control, Learn about illness and Therapeutic intervention Activity: Resume your previous activity Lifting: Gradually increase as tolerated Bathing: No limitations Exercise/Sports: Gradually increase as tolerated Non-emergency contact: Primary Care Provider and Wetlands Technician Call non-emergency contact if: you have any medication questions, your symptoms worsen, your pain is not controlled, you have a fever, your temperature is above 101, your wound has increased redness, your wound has increased drainage and your wound pain has increased Follow-up/Referrals: Alina Kiser PA-C [Physician Tractor Mechanic] - 08/21/18 10:15 am (Please, follow up with [facility] Cardiology Office in [place] office with Alina Kiser PA-C on MondayAugust 21 at 10:15 am. *This office is located at [address] [place] [address] in [place]. If you need to change this appointment, call the office at [phone].) Diet: Low Sodium (2gm) Fluids: 1800ml (7 cups) Addtl Provider Instructions: You were admitted with an acute exacerbation of your congestive heart failure with excess fluid. You were given furosemide through the IV and had the fluid removed. You are also treated with antibiotics for the infection of your leg ulcer. Please continue to keep this clean and perform dressing changes as instructed every other day. Please take your furosemide 80 mg twice daily for the next week and then go back down to once daily. We stopped your digoxin permanently because your heart rate was too low. We discussed placing a pacemaker in your heart-you are still thinking about this and he can follow-up with the blueprinting and photocopy supervisor in the office to further discuss if you would like to have the procedure done. Please take the antibiotics as prescribed for the infection of the skin around your leg ulcer. This is cephalexin and doxycycline. Please take the Spiriva inhaler once a day every day, and he can use the albuterol inhaler as needed for shortness of breath or wheezing. Please follow-up with your primary care physician as scheduled for you, and with blueprinting and photocopy supervisor as scheduled for you. Call your Primary Care doctor if any of the following symptoms or problems start or get worse: * Shortness of breath or difficulty breathing * Wake up at night short of breath * Chest pain * Cough * Swelling of your hands, feet, or legs * More fatigued or tired with your normal activity * Palpitations - sudden fast heart beats WEIGHT * Weigh yourself every morning after using the bathroom. * Use the same scale. * Wear the same amount of clothing. * Write your weight down on a chart. * Call your Primary Care doctor if you gain more than 2-3 pounds in 1-2 days. MEDICATIONS * Use this discharge instruction sheet for medication instructions. * Take your medications at the time your doctor ordered. * Do not skip a dose of your medicines. * If you miss a dose of medicine, take it as soon as possible, but DO NOT DOUBLE A DOSE. * Read your medicine information when you get home. * Know all of the side effects of your medicine. If in doubt, ask your pharmacist * Call your Primary Care doctor's office if you have any side effects. * Be sure all of your doctors know what medicine and herbs you take (including cold, flu, and herbal medicine). Take the following with you to your follow-up doctor appointments: * Weight Chart * Medication List * List of questions Do not drink excessive alcohol, beer or wine. Prescriptions: New albuterol sulfate [Ventolin HFA] 90 mcg/actuation Hfa Aerosol Inhaler 2 puff Inhalation Q6H PRN (Reason: shortness of breath or wheezing) Qty: 18 RF: 0 tiotropium bromide [Spiriva with HandiHaler] 18 mcg Capsule, W/Inhalation Device 1 puff Inhalation QAM Qty: 1 RF: 0 potassium chloride 10 mEq capsule, extended release 10 meq PO DAILY Qty: 30 RF: 0 magnesium oxide 400 mg (241.3 mg magnesium) Tablet 400 mg PO QAM Qty: 30 RF: 0 cephalexin [Keflex] 500 mg capsule 500 mg PO TID Qty: 15 RF: 0 doxycycline hyclate 100 mg tablet 100 mg PO BID 5 Days Qty: 10 RF: 0 Continue carvedilol 12.5 mg tablet 12.5 mg PO BID RF: 0 aspirin 325 mg Tablet 325 mg PO DAILY RF: 0 lisinopril 20 mg tablet 20 mg PO DAILY RF: 0 Changed furosemide 80 mg tablet 80 mg PO BID Qty: 60 RF: 0 Discontinued digoxin 250 mcg tablet 250 mcg PO DAILY RF: 0 Visit Report Forms: [facility] Stand-Alone Forms: Call Back Authorization, [facility] Discharge Orders: Discharge Order (Routine); Ordered 08/07/18 Ordered By: Krupa Moe Admission Data Admit Date/Time: 08/05/18 03:08 Attending Provider: Krupa Moe Admit Provider: Melisa Manley Primary Care Provider: Bladimir Flores Other Providers: Chris Esteban ; Xu Paredes ; Candido Reyes ; Sha Cunningham Service: Telemetry Other Pending Studies at Discharge: Yes Studies:: Final blood culture results-no growth to date
[2018-08-09] MEDS ORDERED: VANCOMYCIN TROUGH ONE (13:30)
== END 2018-08-07 17:07 | disposition home or self-care (01) | DRG 292 ==
LOC: ED 22:11 → 2S 08-05 03:08 → SUATTDRO 08-05 03:08 → 2S 08-05 04:30 → 2E 08-05 10:01

== ENCOUNTER 2019-04-24 10:37 | Inpatient (IN) ==
[2019-04-24] MEDS ORDERED: SODIUM CHLORIDE 0.9% 250 ML IV ONE (11:38)
[2019-04-24] MEDS ORDERED: ACETAMINOPHEN 1,000 MG/100 ML VIAL IV STA (11:39)
[2019-04-24] MEDS ORDERED: DEXAMETHASONE **PF** INJ 10 MG/ML VIAL IV ONE (11:39)
[2019-04-24] MEDS ORDERED: KETOROLAC TROMETHAMINE 15 MG/ML VIAL IV STA (11:40)
[2019-04-24 12:18] LABS: Basophils # (auto) 0.02 K/uL (0-0.2); Basophils % (auto) 0.4 %; Eosinophils # (auto) 0.11 K/uL (0-0.5); Hematocrit (blood only) 37.3 % (42-52); Hemoglobin 12.2 g/dL (14.0-18.0); Immature Granulocytes # (auto) 0.01 K/uL (0.00-0.02); Immature Granulocytes % (auto) 0.2 %; Lymphocytes # (auto) 1.28 K/uL (1.2-3.4); Lymphocytes % (auto) 22.7 %; Mean Corpuscular Hemoglobin 31.7 pg (25-34); Mean Corpuscular Hgb Conc 32.7 g/dL (32-36); Mean Corpuscular Volume 96.9 fL (80-100); Mean Platelet Volume 10.3 fL (7.4-10.4); Monocytes # (auto) 0.64 K/uL (0.11-0.59); Monocytes % (auto) 11.3 %; Neutrophils # (auto) 3.58 K/uL (1.4-6.5); Neutrophils % (auto) 63.4 %; Platelet Count 132 K/uL (130-400); RDW Coefficient of Variation 15.1 % (11.5-14.5); RDW Standard Deviation 53.6 fL (36.4-46.3); Red Blood Count 3.85 M/uL (4.7-6.1); White Blood Count 5.64 K/uL (4.8-10.8)
[2019-04-24 12:27] LABS: Appearance Urine Clear (Clear); Bilirubin Urine Negative (Negative); Blood Urine Negative (Negative); Color Urine Dark Yellow; Glucose Urine UA Negative (Negative); Ketones Urine Negative (Negative); Leukocyte Esterase Urine Negative (Negative); Nitrite Urine Negative (Negative); Protein Urine Negative (Negative); Specific Gravity Urine 1.022 (1.000-1.030); Urobilinogen Urine Negative (Negative); pH Urine 7.5 (4.5-7.5)
[2019-04-24 12:29] LABS: INR 1.1 (0.9-1.1); Partial Thromboplastin Ratio 1.1; Partial Thromboplastin Time 28.5 Seconds (21.0-31.0); Prothrombin Time 10.9 Seconds (9.0-12.0)
[2019-04-24 12:38] LABS: Albumin Level 4.1 gm/dl (3.4-5.0); BUN Creatinine Ratio 22.4 (10-20); C Reactive Protein 1.73 mg/dl (0-0.29); Calcium 9.6 mg/dl (8.5-10.1); Est GFR (African American) 69.3; Est GFR (Non-African American) 59.8; Magnesium 2.6 mg/dl (1.8-2.4); Potassium 4.6 mmol/L (3.5-5.1); Uric Acid 8.2 mg/dl (2.6-7.2)
[2019-04-24 12:42] LABS: Bilirubin,Total 0.7 mg/dl (0.2-1); Globulin 4.1 gm/dl (2.5-4.0); Total Protein 8.2 gm/dl (6.4-8.2)
--- NOTE | 2019-04-24 13:09 | XRay Report ---
XR foot RT 2V CLINICAL HISTORY: 74 years-old Male presenting with pain, redness. TECHNIQUE: Frontal and lateral views of the right foot were obtained. COMPARISON: None. FINDINGS: Mild diffuse soft tissue swelling. Mild osteopenia. No acute fracture or malalignment. No osseous ero jameel or periosteal reaction. No advanced degenerative change. Atherosclerosis. IMPRESSION: No acute osseous injury or radiographic evidence of osteomyelitis. Electronically signed by: Ion Dumont M.D. 04/24/2019 1:08 PM
[2019-04-24 13:15] LABS: Lyme Ab IgG w/WB Rflx Negative (Negative); Lyme Ab IgM w/WB Rflx Negative (Negative)
--- NOTE | 2019-04-24 13:53 | Ultrasound Report ---
RIGHT LOWER EXTREMITY VENOUS DOPPLER HISTORY: Right leg pain, redness and swelling COMPARISON STUDY: None. FINDINGS: There is normal compressibility, flow, and augmentation within the right lower extremity de ep venous system. There is a 7.7 x 2.2 x 2.4 cm complex popliteal cyst. Nonocclusive thrombus seen wi thin the lesser saphenous vein approximately 4.6 cm from the popliteal vein. IMPRESSION: No DVT within the right lower extremity. Nonocclusive lesser saphenous superficial thrombosis approxi mately 4.6 cm from the popliteal vein. Electronically signed by: Harshil Herndon M.D. 04/24/2019 1:51 PM
[2019-04-24] MEDS ORDERED: PIPERACILL/TAZOBAC CONSULT ACTIVE PRN ×2 (15:59→21:51)
[2019-04-24] MEDS ORDERED: COLCHICINE 0.6 MG TAB PO ONE (15:59)
[2019-04-24] MEDS ORDERED: PIPERACILLIN/TAZOBACTAM 4.5 GM/120 ML BAG IV ONE (15:59)
[2019-04-24] MEDS ORDERED: ENOXAPARIN 1 MG/KG SQ STA (16:09)
[2019-04-24] MEDS ORDERED: IOVERSOL 100ml IV PRN (16:27)
[2019-04-24] MEDS ORDERED: ENOXAPARIN INJ 120 MG/0.8 ML SYR SQ ONE (16:45)
--- NOTE | 2019-04-24 17:26 | CT Scan Report ---
CT SCAN OF THE RIGHT TIBIA AND FIBULA WITH IV CONTRAST; CT SCAN OF THE RIGHT ANKLE WITH IV CONTRAST; CT SCAN OF THE RIGHT FOOT WITH IV CONTRAST CLINICAL HISTORY: Right leg pain and swelling. COMPARISON STUDY: CT scan of the right lower extremity dated 07/18/2017. Radiographs of the right [place] dated 04/24/2019. TECHNIQUE: Following the IV administration of 93 cc of Optiray 320, CT scan of the right tibia and fi bula is performed from the knee joint to the ankle, CT scan of the right ankle is performed from the distal tibia and fibula to the foot, and CT scan of the right foot is performed from the ankle joint to the base of the foot. Images for these examinations are reviewed in the axial, sagittal, and coron al planes. A dose lowering technique was utilized adhering to the principles of ALARA. CT DOSE: 624.66 mGy.cm FINDINGS: The skeletal structures are osteopenic. There is no evidence of tibial or fibular fracture. No fracture is seen at the ankle joint, and there is no evidence of fracture in the foot.There is no bony erosion or periostitis seen involving the right tibia and fibula or at the right ankle joint. E rosive change and cortical loss is identified within the fifth metatarsal head. No additional foci of bony erosion or periostitis are seen in the right foot. There is mild osteoarthritic change seen thr oughout the foot. The knee joint is grossly maintained noting arthritic change and a moderate joint e ffusion. The ankle mortise is intact. There is no ankle joint effusion. There is no evidence of osteo chondral defect in the talar dome. Normal fat is maintained within the sinus tarsi. There are tiny do rsal and plantar calcaneal enthesophytes. Mild degenerative spurring is seen along the dorsal aspect of the tarsal bones. There is generalized atrophy of the regional musculature. No organized fluid col lection is identified. The calf arteries demonstrate atherosclerotic calcification and irregularity b ut are patent. There is three-vessel runoff to the foot. The dorsalis pedis artery is patent. There i s diffuse subcutaneous soft tissue edema and trace fluid identified throughout the right calf, around the ankle joint, and in the foot. This is greatest along the dorsolateral aspect of the foot. No talita ar ulceration is seen. No subcutaneous gas is identified. The Achilles tendon appears intact as visua lized. IMPRESSION: 1. There is erosive change identified within the fifth metatarsal head. This is concerning for osteom yelitis and clinical correlation will be required. 2. No additional findings are concerning for osteomyelitis involving the right tibia and fibula, the right ankle, or the right foot. 3. Mild diffuse subcutaneous soft tissue edema is present throughout the right lower extremity. This is nonspecific. Correlate clinically for presence of cellulitis. 4. No organized fluid collection is seen to suggest abscess. No radiodense foreign body is seen. 5. There is generalized atrophy of the regional musculature. 6. Knee joint effusion. 7. Additional findings as above. Electronically signed by: Channing Marlow M.D. 04/24/2019 5:25 PM
--- NOTE | 2019-04-24 18:32 | Emergency Department Note ---
Entered by Nicolas Ramos acting as a scribe for Brien Collins MD History of Present Illness General Chief complaint: Ankle Pain Stated complaint: RIGHT ANKLE SWOLLEN Time Seen by Provider: 04/24/19 11:16 Source: patient History of Present Illness Provider complaint: Foot pain Onset (ago): week(s) 1 Location: lower extremity and right Pain Consistency: + constant Maximum Pain Intensity: 9 Current Pain Intensity: 9 Quality: + other (Shooting) Relieved By: + none Exacerbated By: + movement Associated symptoms: no cough, no fever/chills, no nausea/vomiting and no shortness of breath The patient is a 74 year old male who presents to the Emergency Room with complaints of constant right ankle and foot pain that started to develop about a week ago. The patient rates the pain as a 9/10 and describes it as a shooting pain. The patient notes the pain is worse with putting pressure on the foot and nothing seems to help relieve it. The patient adds that he had cellulitis in this leg over a year ago but since then has been asymptomatic. The patient was seen at Urgent Care for his symptoms but was sent here for further testing. Last night the patient took Ibuprofen for pain but it did not help. Additionally, the patient denies any cough, fevers, nausea, vomiting or shortness of breath as well as any recent trauma or injury. The patient also mentioned that he has a history of poor circulation. Home Medications Home Medications Medication Instructions Recorded Confirmed Type albuterol sulfate [Ventolin HFA] 2 puff INHALATION Q6H PRN #18 gm 08/07/1809/11 Rx magnesium oxide 400 mg PO QAM #30 tab 08/07/18 04/24/19 Rx aspirin 325 mg tablet 325 mg PO DAILY #90 tab 04/02/19 04/24/19 Rx carvedilol 12.5 mg tablet 12.5 mg PO BID #180 tab 04/02/19 04/24/19 Rx cilostazol 100 mg tablet 100 mg PO BID #60 tab 04/11/19 04/24/19 Rx furosemide 80 mg tablet 80 mg PO DAILY #90 tab 04/11/19 04/24/19 Rx lisinopril 20 mg tablet 20 mg PO DAILY #90 tab 04/11/19 04/24/19 Rx potassium chloride ER 10 mEq 10 meq PO DAILY cap 04/11/19 04/24/19 History capsule,extended release mupirocin 2 % topical ointment 1 appln TOPICAL BID PRN #1 gm 04/15/19 04/24/19 History Allergies Allergy/AdvReac Type Severity Reaction Status Date / Time ragweed pollen Allergy Mild Verified 04/24/19 11:27 No Known Drug Allergies Allergy Verified 04/24/19 11:27 Dust Allergy Mild Uncoded 04/24/19 11:27 Past Med/Surg History Medical History Venous ulcer MICHAEL (acute kidney injury) Aortic stenosis Atrial fibrillation with normal ventricular rate (Acute) RBBB (Acute) PAD (peripheral artery disease) (Acute) CHF (congestive heart failure) (Chronic) Cardiomegaly (Chronic) Family History Other No significant family history Social History Communication Ability: Effective Experimental Assembler Required: No Beliefs That Will Affect Care: None Current Living Situation: Family Current Living Situation Comment: Lives in [place] with Other Information That Helps Us Care for You: No Feels Safe at Home: Yes Safety Concerns: Feels Safe At This Time Smoking Status: Former smoker Tobacco Type: cigarettes ; Cigarettes Per Day: 1ppd ; Do You Dip or Chew Tobacco: No ; Second Hand Exposure: No ; Tobacco Cessation Education Requested by Patient: No Hx Alcohol Use: No Hx Substance Use: No Review of Systems See HPI for pertinent positives & negatives. and A total of 10 systems reviewed and were otherwise negative Physical Exam Vital Signs Vital Signs - 24 hr 04/24/19 10:46 04/24/19 11:59 04/24/19 12:00 Temperature 36.6 C Temperature Source Oral Sepsis Recent Fever Within 48 Hours No Sepsis Action Taken by Nursing No Action Required Pulse Rate 86 85 84 Pulse Rate [Apical] Pulse Rate from SpO2 Sensor Respiratory Rate 20 23 23 Respiratory Effort / Characteristics Non-Labored Spontaneous Respiratory Depth Normal Respiratory Pattern Regular Blood Pressure 146/76 H Blood Pressure [Left Arm] Blood Pressure Mean 99 Blood Pressure Mean [Left Arm] Pulse Oximetry 96 Oxygen Delivery Method Room Air 04/24/19 12:08 04/24/19 12:22 04/24/19 12:30 Temperature Temperature Source Sepsis Recent Fever Within 48 Hours Sepsis Action Taken by Nursing Pulse Rate 82 87 Pulse Rate [Apical] 85 Pulse Rate from SpO2 Sensor 80 85 Respiratory Rate 18 18 20 Respiratory Effort / Characteristics Respiratory Depth Respiratory Pattern Blood Pressure 112/67 126/99 Blood Pressure [Left Arm] 112/67 Blood Pressure Mean 82 108 Blood Pressure Mean [Left Arm] 82 Pulse Oximetry 95 95 96 Oxygen Delivery Method Room Air 04/24/19 13:00 04/24/19 13:46 04/24/19 14:00 Temperature Temperature Source Sepsis Recent Fever Within 48 Hours Sepsis Action Taken by Nursing Pulse Rate 81 85 87 Pulse Rate [Apical] Pulse Rate from SpO2 Sensor 84 Respiratory Rate 25 H 28 H 26 H Respiratory Effort / Characteristics Respiratory Depth Respiratory Pattern Blood Pressure 119/76 Blood Pressure [Left Arm] Blood Pressure Mean 90 Blood Pressure Mean [Left Arm] Pulse Oximetry 95 Oxygen Delivery Method 04/24/19 14:20 04/24/19 14:30 04/24/19 15:00 Temperature Temperature Source Sepsis Recent Fever Within 48 Hours Sepsis Action Taken by Nursing Pulse Rate 84 84 Pulse Rate [Apical] 85 Pulse Rate from SpO2 Sensor Respiratory Rate 18 23 21 Respiratory Effort / Characteristics Respiratory Depth Respiratory Pattern Blood Pressure Blood Pressure [Left Arm] 122/77 Blood Pressure Mean Blood Pressure Mean [Left Arm] 92 Pulse Oximetry 98 Oxygen Delivery Method 04/24/19 15:28 04/24/19 15:30 04/24/19 15:31 Temperature Temperature Source Sepsis Recent Fever Within 48 Hours Sepsis Action Taken by Nursing Pulse Rate 79 86 87 Pulse Rate [Apical] 80 Pulse Rate from SpO2 Sensor 80 88 85 Respiratory Rate 21 16 19 Respiratory Effort / Characteristics Respiratory Depth Respiratory Pattern Blood Pressure 135/90 134/81 Blood Pressure [Left Arm] 135/90 Blood Pressure Mean 105 98 Blood Pressure Mean [Left Arm] 105 Pulse Oximetry 95 94 96 Oxygen Delivery Method Room Air 04/24/19 16:00 04/24/19 16:22 04/24/19 18:05 Temperature Temperature Source Sepsis Recent Fever Within 48 Hours Sepsis Action Taken by Nursing Pulse Rate 98 H 92 H Pulse Rate [Apical] 93 H Pulse Rate from SpO2 Sensor 94 H 91 H Respiratory Rate 26 H 18 19 Respiratory Effort / Characteristics Respiratory Depth Respiratory Pattern Blood Pressure 146/79 H 145/74 H Blood Pressure [Left Arm] 146/79 H Blood Pressure Mean 101 97 Blood Pressure Mean [Left Arm] 101 Pulse Oximetry 97 95 95 Oxygen Delivery Method 04/24/19 18:30 04/24/19 19:00 04/24/19 19:30 Temperature Temperature Source Sepsis Recent Fever Within 48 Hours Sepsis Action Taken by Nursing Pulse Rate 86 83 87 Pulse Rate [Apical] Pulse Rate from SpO2 Sensor 91 H 86 86 Respiratory Rate 24 26 H 23 Respiratory Effort / Characteristics Respiratory Depth Respiratory Pattern Blood Pressure 143/84 H 147/82 H 128/88 Blood Pressure [Left Arm] Blood Pressure Mean 103 103 101 Blood Pressure Mean [Left Arm] Pulse Oximetry 93 95 95 Oxygen Delivery Method GENERAL: Awake, alert, uncomfortable-appearing, in no distress HENT: Normocephalic, atraumatic. Oropharynx with dry mucous membranes and otherwise unremarkable. EYES: Normal conjunctiva. Sclera non-icteric. NECK: Supple. No nuchal rigidity. FROM. No JVD. RESPIRATORY: Clear to auscultation. CARDIAC: Regular rate, normal rhythm. Extremities warm and well perfused. Dopplerable monophasic DP pulse of right foot. ABDOMEN: Soft, non-distended. No tenderness to palpation. No rebound or guarding. No masses. RECTAL: Deferred. MUSCULOSKELETAL: Chest examination reveals no tenderness. The back is symmetrical on inspection without obvious abnormality. There is no CVA tenderness to palpation. No joint edema. LOWER EXTREMITIES: Right calf with 1+ edema and mild distal-posterior tenderness. Erythema, warmth and tenderness to the medial aspect of the right mid foot extending to the medial malleolus. No crepitus. NEURO: Normal sensorium. No sensory or motor deficits noted. SKIN: Warm and dry. No jaundice noted. Course 1131: Past medical records reviewed. The patient was evaluated in room C11B, and a complete history and physical examination were performed. 1550: I performed a bedside ultrasound on the patient's right ankle. We also discussed the treatment plan and he agrees with the plan. 1610: I spoke to Dr. Jax Arnold [facility] Hospitalist about the patient's case. She will accept the patient for further evaluation. Consultations Consultation #1: I spoke to Dr. Jax Arnold [facility] Hospitalist about the patient's case. She will accept the patient for further evaluation. Time: 16:10 Administered Medications Discontinued Medications Colchicine (Colcrys) 1.2 mg PO NOW ONE Stop: 04/24/19 16:00 Last Admin: 04/24/19 17:57 Dose: 1.2 mg Documented by: [id number] Dexamethasone Sodium Phosphate (Decadron Pf) 10 mg IV NOW ONE Stop: 04/24/19 11:40 Last Admin: 04/24/19 12:00 Dose: 10 mg Documented by: [id number] Enoxaparin Sodium (Lovenox 1 Mg/Kg Providers Use Dosing Set) 1 mg SQ NOW STA Stop: 04/24/19 16:10 Last Admin: 04/24/19 17:58 Dose: Not Given Documented by: [id number] Enoxaparin Sodium (Lovenox) 111 mg SQ TODAY@1645 ONE Stop: 04/24/19 16:46 Last Admin: 04/24/19 17:58 Dose: 111 mg Documented by: [id number] Acetaminophen (Ofirmev) 1,000 mg in 100 mls @ 400 mls/hr IV NOW STA Stop: 04/24/19 11:53 Last Infusion: 04/24/19 12:39 Dose: 0 mls/hr Documented by: [id number] Admin: 04/24/19 12:00 Dose: 400 mls/hr Documented by: [id number] Sodium Chloride (Nss) 250 mls @ 999 mls/hr IV .Q16M ONE Stop: 04/24/19 11:53 Last Infusion: 04/24/19 12:39 Dose: 0 mls/hr Documented by: [id number] Admin: 04/24/19 12:00 Dose: 999 mls/hr Documented by: [id number] Piperacillin Sod/Tazobactam Sod (Zosyn) 4.5 gm in 120 mls @ 240 mls/hr IV NOW ONE Stop: 04/24/19 16:28 Last Infusion: 04/24/19 18:30 Dose: 0 mls/hr Documented by: [id number] Admin: 04/24/19 17:57 Dose: 240 mls/hr Documented by: [id number] Ioversol (Optiray 320 100ml) 93 ml IV ONCE PRN PRN Reason: Interaction Checking Stop: 04/28/19 16:26 Last Admin: 04/24/19 16:27 Dose: 93 ml Documented by: [id number] Ketorolac Tromethamine (Toradol) 15 mg IV NOW STA Stop: 04/24/19 11:41 Last Admin: 04/24/19 12:00 Dose: 15 mg Documented by: [id number] Medical Decision Making Differential Diagnosis Differential diagnosis includes etiologies such as cellulitis, abscess, MRSA infection, DVT, necrotizing fasciitis, dermatitis, drug eruption, as well as others were entertained. Medical Records Attestation: I reviewed the patient's medical records. Home Medications Current Medication List: was personally reviewed by me Laboratory Data Attestation: I reviewed the patient's lab results. Result diagrams: 04/24/19 11:54 04/24/19 11:54 Lab Results 04/24/19 04/24/19 04/24/19 Range/Units 11:54 11:54 11:54 WBC 5.64 (4.8-10.8) K/uL RBC 3.85 L (4.7-6.1) M/uL Hgb 12.2 L (14.0-18.0) g/dL Hct 37.3 L (42-52) % MCV 96.9 (80-100) fL MCH 31.7 (25-34) pg MCHC 32.7 (32-36) g/dL RDW Std Deviation 53.6 H (36.4-46.3) fL RDW Coeff of Maria Teresa 15.1 H (11.5-14.5) % Plt Count 132 (130-400) K/uL MPV 10.3 (7.4-10.4) fL Immature Gran % (Auto) 0.2 % Neut % (Auto) 63.4 % Lymph % (Auto) 22.7 % [place] % (Auto) 11.3 % Eos % (Auto) 2.0 % Baso % (Auto) 0.4 % Immature Gran # (Auto) 0.01 (0.00-0.02) K/uL Neut # (Auto) 3.58 (1.4-6.5) K/uL Lymph # (Auto) 1.28 (1.2-3.4) K/uL [place] # (Auto) 0.64 H (0.11-0.59) K/uL Eos # (Auto) 0.11 (0-0.5) K/uL Baso # (Auto) 0.02 (0-0.2) K/uL ESR 69 H (0-14) mm/hr PT (9.0-12.0) Seconds INR (0.9-1.1) APTT (21.0-31.0) Seconds PTT Ratio Sodium (136-145) mmol/L Potassium (3.5-5.1) mmol/L Chloride (98-107) mmol/L Carbon Dioxide (21-32) mmol/L Anion Gap (3-11) BUN (7-18) mg/dl Creatinine (0.6-1.4) mg/dl Est Cr Clr Drug Dosing ml/min Est GFR ( Amer) Est GFR (Non-Af Amer) BUN/Creatinine Ratio (10-20) Glucose (70-99) mg/dl Lactate (0.4-2.0) mmol/L Uric Acid (2.6-7.2) mg/dl Calcium (8.5-10.1) mg/dl Magnesium (1.8-2.4) mg/dl Total Bilirubin (0.2-1) mg/dl AST (15-37) U/L ALT (12-78) U/L Alkaline Phosphatase (45-117) U/L C-Reactive Protein (0-0.29) mg/dl Total Protein (6.4-8.2) gm/dl Albumin (3.4-5.0) gm/dl Globulin (2.5-4.0) gm/dl Albumin/Globulin Ratio (0.9-2) Urine Color Urine Appearance (Clear) Urine pH (4.5-7.5) Ur Specific [place] (1.000-1.030) Urine Protein (Negative) Urine Glucose (UA) (Negative) Urine Ketones (Negative) Urine Blood (Negative) Urine Nitrite (Negative) Urine Bilirubin (Negative) Urine Urobilinogen (Negative) Ur Leukocyte Esterase (Negative) Lyme Disease IgG Ab Negative (Negative) Lyme Disease IgM Ab Negative (Negative) 04/24/19 04/24/19 04/24/19 Range/Units 11:54 11:54 12:00 WBC (4.8-10.8) K/uL RBC (4.7-6.1) M/uL Hgb (14.0-18.0) g/dL Hct (42-52) % MCV (80-100) fL MCH (25-34) pg MCHC (32-36) g/dL RDW Std Deviation (36.4-46.3) fL RDW Coeff of Maria Teresa (11.5-14.5) % Plt Count (130-400) K/uL MPV (7.4-10.4) fL Immature Gran % (Auto) % Neut % (Auto) % Lymph % (Auto) % [place] % (Auto) % Eos % (Auto) % Baso % (Auto) % Immature Gran # (Auto) (0.00-0.02) K/uL Neut # (Auto) (1.4-6.5) K/uL Lymph # (Auto) (1.2-3.4) K/uL [place] # (Auto) (0.11-0.59) K/uL Eos # (Auto) (0-0.5) K/uL Baso # (Auto) (0-0.2) K/uL ESR (0-14) mm/hr PT 10.9 (9.0-12.0) Seconds INR 1.1 (0.9-1.1) APTT 28.5 (21.0-31.0) Seconds PTT Ratio 1.1 Sodium 137 (136-145) mmol/L Potassium 4.6 (3.5-5.1) mmol/L Chloride 100 (98-107) mmol/L Carbon Dioxide 32 (21-32) mmol/L Anion Gap 5.0 (3-11) BUN 27 H (7-18) mg/dl Creatinine 1.19 (0.6-1.4) mg/dl Est Cr Clr Drug Dosing 64.0 ml/min Est GFR ( Amer) 69.3 Est GFR (Non-Af Amer) 59.8 BUN/Creatinine Ratio 22.4 H (10-20) Glucose 91 (70-99) mg/dl Lactate 1.1 (0.4-2.0) mmol/L Uric Acid 8.2 H (2.6-7.2) mg/dl Calcium 9.6 (8.5-10.1) mg/dl Magnesium 2.6 H (1.8-2.4) mg/dl Total Bilirubin 0.7 (0.2-1) mg/dl AST 14 L (15-37) U/L ALT 20 (12-78) U/L Alkaline Phosphatase 73 (45-117) U/L C-Reactive Protein 1.73 H (0-0.29) mg/dl Total Protein 8.2 (6.4-8.2) gm/dl Albumin 4.1 (3.4-5.0) gm/dl Globulin 4.1 H (2.5-4.0) gm/dl Albumin/Globulin Ratio 1.0 (0.9-2) Urine Color Urine Appearance (Clear) Urine pH (4.5-7.5) Ur Specific [place] (1.000-1.030) Urine Protein (Negative) Urine Glucose (UA) (Negative) Urine Ketones (Negative) Urine Blood (Negative) Urine Nitrite (Negative) Urine Bilirubin (Negative) Urine Urobilinogen (Negative) Ur Leukocyte Esterase (Negative) Lyme Disease IgG Ab (Negative) Lyme Disease IgM Ab (Negative) 04/24/19 Range/Units 12:19 WBC (4.8-10.8) K/uL RBC (4.7-6.1) M/uL Hgb (14.0-18.0) g/dL Hct (42-52) % MCV (80-100) fL MCH (25-34) pg MCHC (32-36) g/dL RDW Std Deviation (36.4-46.3) fL RDW Coeff of Maria Teresa (11.5-14.5) % Plt Count (130-400) K/uL MPV (7.4-10.4) fL Immature Gran % (Auto) % Neut % (Auto) % Lymph % (Auto) % [place] % (Auto) % Eos % (Auto) % Baso % (Auto) % Immature Gran # (Auto) (0.00-0.02) K/uL Neut # (Auto) (1.4-6.5) K/uL Lymph # (Auto) (1.2-3.4) K/uL [place] # (Auto) (0.11-0.59) K/uL Eos # (Auto) (0-0.5) K/uL Baso # (Auto) (0-0.2) K/uL ESR (0-14) mm/hr PT (9.0-12.0) Seconds INR (0.9-1.1) APTT (21.0-31.0) Seconds PTT Ratio Sodium (136-145) mmol/L Potassium (3.5-5.1) mmol/L Chloride (98-107) mmol/L Carbon Dioxide (21-32) mmol/L Anion Gap (3-11) BUN (7-18) mg/dl Creatinine (0.6-1.4) mg/dl Est Cr Clr Drug Dosing ml/min Est GFR ( Amer) Est GFR (Non-Af Amer) BUN/Creatinine Ratio (10-20) Glucose (70-99) mg/dl Lactate (0.4-2.0) mmol/L Uric Acid (2.6-7.2) mg/dl Calcium (8.5-10.1) mg/dl Magnesium (1.8-2.4) mg/dl Total Bilirubin (0.2-1) mg/dl AST (15-37) U/L ALT (12-78) U/L Alkaline Phosphatase (45-117) U/L C-Reactive Protein (0-0.29) mg/dl Total Protein (6.4-8.2) gm/dl Albumin (3.4-5.0) gm/dl Globulin (2.5-4.0) gm/dl Albumin/Globulin Ratio (0.9-2) Urine Color Dark Yellow Urine Appearance Clear (Clear) Urine pH 7.5 (4.5-7.5) Ur Specific [place] 1.022 (1.000-1.030) Urine Protein Negative (Negative) Urine Glucose (UA) Negative (Negative) Urine Ketones Negative (Negative) Urine Blood Negative (Negative) Urine Nitrite Negative (Negative) Urine Bilirubin Negative (Negative) Urine Urobilinogen Negative (Negative) Ur Leukocyte Esterase Negative (Negative) Lyme Disease IgG Ab (Negative) Lyme Disease IgM Ab (Negative) Imaging Data Radiologist's Impression: Radiology results as stated below per my review and the radiologist's interpretation: XR foot RT 2V CLINICAL HISTORY: 74 years-old Male presenting with pain, redness. TECHNIQUE: Frontal and lateral views of the right foot were obtained. COMPARISON: None. FINDINGS: Mild diffuse soft tissue swelling. Mild osteopenia. No acute fracture or malalignment. No osseous erosion or periosteal reaction. No advanced degenerative change. Atherosclerosis. IMPRESSION: No acute osseous injury or radiographic evidence of osteomyelitis. Electronically signed by: Ion Dumont M.D. 04/24/2019 1:08 PM RIGHT LOWER EXTREMITY VENOUS DOPPLER HISTORY: Right leg pain, redness and swelling COMPARISON STUDY: None. FINDINGS: There is normal compressibility, flow, and augmentation within the right lower extremity deep venous system. There is a 7.7 x 2.2 x 2.4 cm complex popliteal cyst. Nonocclusive thrombus seen within the lesser saphenous vein approximately 4.6 cm from the popliteal vein. IMPRESSION: No DVT within the right lower extremity. Nonocclusive lesser saphenous superficial thrombosis approximately 4.6 cm from the popliteal vein. Electronically signed by: Harshil Herndon M.D. 04/24/2019 1:51 PM ECG Data Attestation: I personally reviewed and interpreted this ECG as follows: Indication: other (Lower extremity swelling) Rate (beats per minute): 80 Rhythm: atrial fibrillation Findings: + other (QRS 174) and + RBBB; no ST depression, no ST elevation and no acute ischemic change Comparison ECG Date: from (08/04/18) Change: no significant change Blood Pressure Blood Pressure Findings: Normal blood pressure MDM Narrative The patient is a pleasant 75-year-old gentleman with a past medical history of A. fib on daily aspirin (previously poorly compliant on coumadin), Cardiomyopat hy, PVD/PAD who presents emergency department with worsening right lower leg swelling and pain over the past week per hpi. On arrival patient is uncomfortable no acute distress, afebrile stable vital signs. On exam the patient has erythema warmth and tenderness to the medial aspect of his right mi dfoot extending proximally to the medial malleolus. There is no crepitus. Full range of motion intact. He does have intact dopplerable-monophasic DP pulse of right foot. WBC and platelets within normal limits. H/H 12.2/37.3 without recent values for comparison. ESR and CRP are elevated at 69 and 1.73, respectively. Chemistry without acidosis. LFTs unremarkable. Lactate within normal limits. Uric acid is slightly elevated 8.2. UA negative. Lyme screen negative. Plain film of the right foot and ankle negative for overt evidence of osteomyelitis. Duplex of the right lower extremity does demonstrate superficial thrombosis of the saphenous vein which is approximately 4.6 cm from the p opliteal junction. Therefore given this would meet criteria for anticoagulation of below the knee thrombosis. A limited bedside ultrasound was performed and did not demonstrate gross ankle effusion amenable to joint aspiration. However does demonstrate extensive cobblestoning consistent with cellulitis. Blood cultures were drawn with initial blood work on arrival. Patient was ordered for Zosyn given comorbidities. Case was discussed with [facility]. Camara [facility] hospitalist who evaluate the patient for admission. Requests CT of the lower extremity ordered to further evaluate for possible osteomyelitis, which was ordered and pending. Impression & Plan Cellulitis, Superficial vein thrombosis, Elevated blood uric acid level, [place] irvin erythrocyte sedimentation rate, Elevated C-reactive protein (CRP) Critical Care Time Critical Care Time: Yes Total Critical Care Time: 45 I have personally spent greater than 45 minutes of critical care time in the direct management of this patient. This includes bedside care, interpretation of diagnostic studies, and testing, discussion with consultants, patient, and family members, and other required patient management activities. This 45 minutes is in excess of all separately billable procedures. Discharge Plan Visit Data *Final* Discharge Date/Time: 04/24/19 20:55 Chief Complaint: Ankle Pain Stated Complaint: RIGHT ANKLE SWOLLEN ED Provider: Brien Collins Discharge Problem: Cellulitis, Superficial vein thrombosis, Elevated blood uric acid level, Elevated erythrocyte sedimentation rate, Elevated C-reactive protein (CRP) Patient Disposition: Admitted As Inpatient Discharge Instructions Interventions: ED Discharge Assessment Last Done: 04/24/19 20:55 Discharge Problem: Cellulitis Qualifiers: Site of cellulitis: extremity Site of cellulitis of extremity: lower extremity Laterality: right Qualified Code(s): L03.115 - Cellulitis of right lower limb The scribe's documentation has been prepared under my direction and personally reviewed by me in its entirety. I confirm that the note above accurately re flects all work, treatment, procedures, and medical decision making performed by me.
--- NOTE | 2019-04-24 19:56 | History & Physical Report ---
Date of Service April 24, 2019 Assessment & Plan (1) Cellulitis: Admit to PCU on telemetry Vital signs every 4 hours Started vancomycin and Zosyn in the ER and continued inpatient Patient possibly have osteomyelitis and referred to Ortho. Patient also has nonobstructive nonobstructive lesser saphenous superficial thrombosis and started on therapeutic dose of Lovenox 1 mg/kg every 12 hours Consults placed for vascular. Follow-up coags PT PTT INR Follow-up CBC CMP Replenish electrolytes as necessary Follow-up blood cultures DVT prophylaxis Lovenox as above Patient is full code. Present on Admission?: Yes (2) Superficial vein thrombosis: See above Present on Admission?: Yes (3) Elevated blood uric acid level: Started colchicine, Solu-Medrol, indomethacin Monitor uric acid Present on Admission?: Yes (4) Nonischemic cardiomyopathy: Continue home medicine aspirin switched from 325 daily to 81 since patient is right now on therapeutic Lovenox and aspirin 325 was used only for the purpose of patient not being able to keep up with warfarin as an outpatient. Continue carvedilol 12.5 mg twice daily, furosemide 80 mg p.o. daily switched to furosemide 40 mg IV twice daily since patient has some signs of CHF. Lisinopril 20 mg p.o. daily continue magnesium oxide 400 mg p.o. daily, continue. Started potassium 40 mEq p.o. daily instead of 10 mEq which patient used at home. Present on Admission?: Yes (5) Atrial fibrillation with normal ventricular rate: Patient is now on therapeutic Lovenox. Would consider a better option for anticoagulation in regard of his A. fib's than warfarin if possible. Present on Admission?: Yes History of Present Illness Chief Complaint: Right foot swelling, pain and redness Primary Care Provider: Jose De Jesus Sol MD Patient is a 74 years old male with past medical history of congestive heart failure, atrial fibrillation with normal ventricular rhythm, peripheral artery disease, nonischemic cardiomyopathy, aortic stenosis, who presents to the emergency room with complaint of constant right ankle and foot pain that started to develop about a week ago. Patient rates that pain is a 9 of 10 and describes it as shooting pain. In addition to that patient said that there is a swelling of his right lower extremities up to the ankle. Patient has difficulty walking. Patient was seen in the urgent care for his symptoms and sent here for the further work-up. Patient said nothing alleviated his pain. He tried with ibuprofen but that did not help. Patient denies fever chills chest pain shortness of breath abdominal pain frequency urgency hematemesis hematuria dysuria melena. Patient also mentioned that he has a history of extensive peripheral vascular disease and that at some point he saw Dr. Reyes and recommended to have arthroplasty of his lower extremities blood vessels which patient refused. Patient supposed to be on warfarin for A. fib's but on multiple occasions his warfarin was very poorly controlled either too high or too low that his escalator service mechanic due to high risk did not have any other option than to put him on aspirin 325 mg only. Labs are reviewed: WBC 5.64, hemoglobin 12.2, hematocrit 37.3 platelets 132, PT 10.9, INR 1.1, APTT 28.5, sodium 137, potassium 4.6, BUN 27, creatinine 1.19, GFR 59.8, uric acid 8.2, lactate 1.1,AST 14, ALT 20, C-reactive protein 1.73, alkaline phosphatase 73. Urine all negative normal. With nose Doppler shows no DVT within the right lower extremity. There is nonocclusive lesser soft nose superficial thrombosis approximately 4.6 cm from the popliteal vein. CT of the right lower extremity significant for erosive change identified within the fifth metatarsal head. This is concerning for osteomyelitis. Knee joint effusion. Was made to admit patient to PCU on telemetry for further evaluation and treatment of possible osteomyelitis of the right foot, gout, cellulitis, thrombosis in the superficial soft the nose vein and to start him on full anticoagulation with Lovenox for thrombosis and for A. fib's. Allergies Allergy/AdvReac Type Severity Reaction Status Date / Time ragweed pollen Allergy Mild Verified 04/24/19 11:27 No Known Drug Allergies Allergy Verified 04/24/19 11:27 Dust Allergy Mild Uncoded 04/24/19 11:27 Home Medications Home Medications Medication Instructions Recorded Confirmed Type albuterol sulfate [Ventolin HFA] 2 puff INHALATION Q6H PRN #18 gm 08/07/18 04/24/19 Rx magnesium oxide 400 mg PO QAM #30 tab 08/07/18 04/24/19 Rx aspirin 325 mg tablet 325 mg PO DAILY #90 tab 04/02/19 04/24/19 Rx carvedilol 12.5 mg tablet 12.5 mg PO BID #180 tab 04/02/19 04/24/19 Rx cilostazol 100 mg tablet 100 mg PO BID #60 tab 04/11/19 04/24/19 Rx furosemide 80 mg tablet 80 mg PO DAILY #90 tab 04/11/19 04/24/19 Rx lisinopril 20 mg tablet 20 mg PO DAILY #90 tab 04/11/19 04/24/19 Rx potassium chloride ER 10 mEq 10 meq PO DAILY cap 04/11/19 04/24/19 History capsule,extended release mupirocin 2 % topical ointment 1 appln TOPICAL BID PRN #1 gm 04/15/19 04/24/19 History Past Med/Surg History Medical History Venous ulcer MICHAEL (acute kidney injury) Aortic stenosis Atrial fibrillation with normal ventricular rate (Acute) RBBB (Acute) PAD (peripheral artery disease) (Acute) CHF (congestive heart failure) (Chronic) Cardiomegaly (Chronic) Family History Other No significant family history Social History Communication Ability: Effective 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 Beliefs That Will Affect Care: None Current Living Situation: Family Current Living Situation Comment: Lives in [place] with Other Information That Helps Us Care for You: No Feels Safe at Home: Yes Safety Concerns: Feels Safe At This Time Smoking Status: Former smoker Tobacco Type: cigarettes ; Cigarettes Per Day: 1ppd ; Do You Dip or Chew Tobacco: No ; Second Hand Exposure: No ; Tobacco Cessation Education Requested by Patient: No Hx Alcohol Use: No Hx Substance Use: No Review of Systems Review of Systems: All systems reviewed & are unremarkable except as noted in HPI & below Physical Exam Constitutional: WD/WN, vitals as above well developed and + morbidly obese Eyes: PERRL, conjunctivae normal, anicteric sclerae ENMT: external ear and nose normal, oropharynx normal Neck: trachea midline, no thyromegaly Respiratory: normal respiratory effort, lungs clear to auscultation Cardiovascular: Heart Sounds: normal S1 and normal S2 Palpation: + palpable S3 Vessels: + JVD and dorsalis pedis pulses present Extremities: + pedal edema (2+ pitting) Gastrointestinal (Abdomen): normal bowel sounds, soft, nontender, no hepatosplenomegaly Musculoskeletal: no cyanosis or clubbing, extremities motor strength 5/5 Skin: no rashes, warm and dry Neurologic: patellar DTR's 2+ bilat, sensation intact Psychiatric: A+Ox3, euthymic affect Lymphatic: no cervical or axillary lymphadenopathy Results & Data Vital Signs (Past 12 Hours) Vital Signs Temp Pulse Pulse Resp BP BP Pulse Ox 04/24/19 19:00 83 26 H 147/82 H 95 04/24/19 18:30 86 24 143/84 H 93 04/24/19 18:05 92 H 19 145/74 H 95 04/24/19 16:22 93 H 18 146/79 H 95 04/24/19 16:00 98 H 26 H 146/79 H 97 04/24/19 15:31 87 19 134/81 96 04/24/19 15:30 86 16 94 04/24/19 15:28 79 80 21 135/90 135/90 95 04/24/19 15:00 84 21 04/24/19 14:30 84 23 04/24/19 14:20 85 18 122/77 98 04/24/19 14:00 87 26 H 04/24/19 13:46 85 28 H 04/24/19 13:00 81 25 H 119/76 95 04/24/19 12:30 87 20 126/99 96 04/24/19 12:22 85 18 112/67 95 04/24/19 12:08 82 18 112/67 95 04/24/19 12:00 84 23 04/24/19 11:59 85 23 04/24/19 10:46 36.6 C 86 20 146/76 H 96 Code Status & VTE Plan Code Status Full code VTE Prophylaxis Plan VTE Prophylaxis will be ordered: Yes PG Care Time/CCT Total # of Minutes Spent Total Time Spent with Patient: Total time spent is greater than 50% in coordination of care (as documented) at patient's floor/unit and/or counseling patient: (1) Cellulitis Laterality: right Site of cellulitis: extremity Site of cellulitis of extremity: lower extremity Qualified Code(s): L03.115 - Cellulitis of right lower limb
[2019-04-24] MEDS ORDERED: POLYETHYLENE (MIRALAX) 17 GM PACK PO PRN (21:18)
[2019-04-24] MEDS ORDERED: MAGNESIUM HYDROXIDE SUSP 30 ML UDC PO PRN (21:18)
[2019-04-24] MEDS ORDERED: ALBUTEROL HFA 8 GM INHALER INH PRN (21:18)
[2019-04-24] MEDS ORDERED: MUPIROCIN 2% OINT 22 GM TUBE TOP PRN (21:18)
[2019-04-24] MEDS ORDERED: ZOLPIDEM TARTRATE 5 MG TAB PO PRN (21:18)
[2019-04-24] MEDS ORDERED: OXYCODONE/ACETAMINOPHEN 5mg/325mg TAB PO PRN (21:18)
[2019-04-24] MEDS ORDERED: ONDANSETRON INJ 2 MG/ML 2 ML VIAL IV PRN (21:18)
[2019-04-24] MEDS ORDERED: ACETAMINOPHEN 325 MG TAB PO PRN (21:18)
[2019-04-24] MEDS ORDERED: ALUMINUM/MAGNESIUM SUSP 30 ML UDC PO PRN (21:18)
[2019-04-24] MEDS ORDERED: VANCOMYCIN CONSULT ACTIVE PRN (21:50)
[2019-04-24] MEDS ORDERED: FUROSEMIDE 40 MG in SYRINGE 0 ML IV SCH (22:00)
[2019-04-24] MEDS ORDERED: VANCOMYCIN HCL 2,500 MG in SODIUM CHLORIDE 0.9% 500 ML IV ONE (22:30)
[2019-04-24] MEDS: methylPREDNISolone 40 MG in SYRINGE 0 ML IV SCH (22:40)
[2019-04-24] MEDS: INDOMETHACIN 25 MG CAP PO SCH (22:41)
[2019-04-24] MEDS: carvediloL 12.5 MG TAB PO SCH (22:41)
[2019-04-24] MEDS: cilostazoL 100 MG TAB PO SCH (22:41)
--- NOTE | 2019-04-25 | Pharmacy Report ---
Pharmacy Abx Initial Consult - Date of Service April 24, 2019 - Pharmacy Dosing Scope Date of Consult: 04/24/19 Consultation requested by: Dr. Camara Pharmacy is consulted to initiate vancomycin and Zosyn IV dosing therapy, order appropriate labs and adjust drug dose/frequency. - Subjective The patient is a 74 year old M admitted on 04/24/19 19:53 with L ankle osteo. - Objective Height: 5 ft 8 in Weight: 105.994 kg Vital Signs (Past 12hrs): Vital Signs Temp Pulse Pulse Resp BP BP Pulse Ox 04/24/19 21:28 36.5 C 93 H 22 153/82 H 94 04/24/19 20:55 84 22 112/82 94 04/24/19 20:30 84 22 112/82 94 04/24/19 20:00 85 22 137/85 96 04/24/19 19:30 87 23 128/88 95 04/24/19 19:00 83 26 H 147/82 H 95 04/24/19 18:30 86 24 143/84 H 93 04/24/19 18:05 92 H 19 145/74 H 95 04/24/19 16:22 93 H 18 146/79 H 95 04/24/19 16:00 98 H 26 H 146/79 H 97 04/24/19 15:31 87 19 134/81 96 04/24/19 15:30 86 16 94 04/24/19 15:28 79 80 21 135/90 135/90 95 04/24/19 15:00 84 21 04/24/19 14:30 84 23 04/24/19 14:20 85 18 122/77 98 04/24/19 14:00 87 26 H 04/24/19 13:46 85 28 H 04/24/19 13:00 81 25 H 119/76 95 04/24/19 12:30 87 20 126/99 96 04/24/19 12:22 85 18 112/67 95 04/24/19 12:08 82 18 112/67 95 04/24/19 12:00 84 23 04/24/19 11:59 85 23 Lab Results (24hrs): Laboratory Tests (24 Hours) 04/24/19 04/24/19 04/24/19 11:54 11:54 11:54 WBC 5.64 Neut # (Auto) 3.58 ESR 69 H Creatinine 1.19 Est Cr Clr Drug Dosing 64.0 C-Reactive Protein 1.73 H Micro Results: 04/24/19 12:00 Aerobic Blood Culture - Pending Blood Anaerobic Blood Culture - Pending 04/24/19 11:54 Aerobic Blood Culture - Pending Blood Anaerobic Blood Culture - Pending - Risk Factors for Resistance * PAD - Assessment & Plan Assessment 74 year old M admitted with osteo Plan vancomycin/Zosyn for treatment of bone infection Vancomycin IV * Estimated PK Parameters: Vd 0.6 L/kg, Tex 0.057 hr-1, t1/2 12.1 hr * Loading dose: 2500 mg (23.5 mg/kg) * Maintenance dose: 1500 mg IV (13.5 mg/kg) every 12 hours * Goal trough level for bone infection : 15 to 20 mcg/mL * Trough ordered for 04/26/19. * A less than traditional dose has been selected due to likelihood of drug accumulation in obese patient. Piperacillin/tazobactam * 4.5 g bolus administered over 30 minutes, then 4.5 g IV extended infusion every 8 hours for CrCl greater than 20 mL/min * Aggressive dosing selected due to BMI 35 or more. Pharmacy will continue to follow and will adjust dose/frequency as necessary. Thank you.
[2019-04-25] MEDS: PIPERACILLIN/TAZOBACTAM 4.5 GM in DEXTROSE 5% 100 ML IV SCH ×2 (01:06→07:44)
[2019-04-25] MEDS: ENOXAPARIN INJ 120 MG/0.8 ML SYR SQ SCH ×2 (06:14→18:46)
[2019-04-25 07:40] LABS: Creatinine Clr Calc Pharmacy 48.9 ml/min; Est GFR (Non-African American) 43.1
[2019-04-25] MEDS: carvediloL 12.5 MG TAB PO SCH ×2 (07:49→20:47)
[2019-04-25] MEDS: cilostazoL 100 MG TAB PO SCH (07:49)
[2019-04-25] MEDS: INDOMETHACIN 25 MG CAP PO SCH (07:49)
[2019-04-25] MEDS: MAGNESIUM OXIDE 400 MG TAB PO SCH (07:49)
[2019-04-25] MEDS ORDERED: ASPIRIN 81 MG ECTAB PO SCH (09:00)
[2019-04-25] MEDS ORDERED: lisinopriL 20 MG TAB PO SCH (09:00)
[2019-04-25] MEDS ORDERED: ASPIRIN 325 MG ECTAB PO SCH (09:00)
[2019-04-25] MEDS ORDERED: POTASSIUM CHLORIDE 20 MEQ TABCR PO SCH (09:00)
[2019-04-25] MEDS ORDERED: DAPTOmycin 325 MG in SYRINGE 0 ML IV SCH (09:00)
[2019-04-25] MEDS ORDERED: COLCHICINE 0.6 MG TAB PO SCH (09:00)
[2019-04-25] MEDS: methylPREDNISolone 40 MG in SYRINGE 0 ML IV SCH (09:37)
[2019-04-25] MEDS ORDERED: VANCOMYCIN HCL 1,500 MG in SODIUM CHLORIDE 0.9% 500 ML IV SCH (10:00)
--- NOTE | 2019-04-25 10:28 | Family Medicine Progress Note ---
Date of Service April 25, 2019 Assessment & Plan (1) Osteomyelitis: 74 yo male PMH of nonsichemic cardiomypathy, PAD, , HTN, AFIB presents with painful right lower extremity. Cellulitis/osteo - No open wounds, cellulitis resolving, CT concerning for osteomyelitis - Continue IV Unasyn - Ortho following, appreciate recs PAD - Pain experiencing claudication, but no signs of acute limb ischemia - Vascular surgery following, appreciate recs - Will discuss intiating Plavix and Atorvastatin tomorrow with the patient - Continue Lovenox H/o Afib/nonischemic cardiomyopathy - Cont. carvedilol 12.5 mg BID - Case healthcare financial analyst appointment, discuss fci anticoagulation, Xeralto vs Eliquis, patient is self pay MICHAEL in the setting of CKD - Holding Lasix - Follow creatinine DVT ppx--Lovenox, therapeutic Code--Full Code (2) Cellulitis: (3) Superficial vein thrombosis: (4) Aortic stenosis: (5) Nonischemic cardiomyopathy: (6) Cellulitis: (7) PAD (peripheral artery disease): Supervising Physician Co-Signing Physician Notes I personally examined the patient and verified all olson points of history and exam, discussed case, and agree with decision making with Dr Jett. Foot feeling a lot better. Would like to avoid surgical interventions if at all possible. Vitals noted, in general he is awake and alert pleasant no distress. HEENT normal cephalic atraumatic mucous membranes moist. Breathing unlabored no accessory muscle use. Lower extremity with very dull erythema on the dorsum of his foot, he and family not much improved from before, minimally tender. He is also minimally tender over his fifth metatarsal but without any crepitus or erythema. Peripheral vascular disease with foot infection and concern on osteomyelitishe would like to avoid operative interventions if at all possible. It seems like this is going to be reasonable as long as he is able to maintain adequate flow to his foot. We will switch to Plavix, he notes that the cilostazol upset his stomach, so we will discontinue that. We will initiate atorvastatin for plaque stabilizationat 80 mg given his recent lipid panel suggesting that by [place] criteria we will want higher dosing to get his lipids to goal, and by the 2013 ACC guidelines, we would want plaque stabilization benefit. He does no t seem to show concern for resistant bacteria or Pseudomonasso we will streamline his antibiotics to Unasyn with anticipation of being able to discharge him home on Augmentin. So far is a slightly bumped creatinine, we will hold all nephrotoxic agents and follow-up basic metabolic panel in the morning. Otherwise as above Subjective Patient report 50% improvement in pain since admission Says that he has had Chronic pain in right leg with known PAD Pain worsened over the past few days, /10, sharp Denies fevers Review of Systems Review of Systems: All systems reviewed & are unremarkable except as noted in HPI & below Physical Exam Constitutional: WD/WN, vitals as above Eyes: PERRL, conjunctivae normal, anicteric sclerae ENMT: external ear and nose normal, oropharynx normal Neck: trachea midline, no thyromegaly Respiratory: normal respiratory effort, lungs clear to auscultation Cardiovascular: RRR, no murmur, no edema Gastrointestinal (Abdomen): normal bowel sounds, soft, nontender, no hepatosplenomegaly Musculoskeletal: no cyanosis or clubbing, extremities motor strength 5/5 mild erythema of the medial aspect of the right lower extremity/ankle, pain at rest, pain with ROM, tendernerss over medial malleolus extending into medial foot, no open wounds, pulses present, no significant asymmetry/edema Skin: no rashes, warm and dry Neurologic: PERRL, EOMI, accommodation nl, no face palsy, no dysarthria Psychiatric: A+Ox3, euthymic affect Results & Data Vital Signs (Past 12 Hours) Vital Signs Temp Pulse Resp BP Pulse Ox 04/25/19 08:00 36.3 C L 87 22 123/64 95 04/25/19 03:01 36.7 C 81 18 122/68 95 04/25/19 00:05 36.7 C 85 19 128/74 94 PG Care Time/CCT Total # of Minutes Spent Total Time Spent with Patient: Total time spent is greater than 50% in coordination of care (as documented) at patient's floor/unit and/or counseling patient: (1) Cellulitis Laterality: right Site of cellulitis: extremity Site of cellulitis of extremity: lower extremity Qualified Code(s): L03.115 - Cellulitis of right lower limb (2) Cellulitis Laterality: right Site of cellulitis: extremity Site of cellulitis of extremity: lower extremity Qualified Code(s): L03.115 - Cellulitis of right lower limb
--- NOTE | 2019-04-25 12:38 | Orthopedic Consultation ---
Date of Consultation April 25, 2019 Assessment & Plan (1) Cellulitis: Patient was seen in room 239 with his and daughter. Right foot was evaluated. They state that it is visibly better than it was yesterday.Conservative care measures were discussed. His vitals remain quite good. He is not tachycardic and there is no evidence of hypertension or hypotension. He is afebrile. Patient is already been started on IV antibiotics. There is no open wound. Possibility of osteomyelitis, while possible, does not seem likely at this time clinically. He has had no open wounds and symptoms are responding rapidly to IV antibiotics. He has poor peripheral circulation and is known to have vascular disease. Awaiting vascular consult recommendations. Surgical intervention at this time may be more harmful given his likelihood for poor wound healing. Likelihood for cellulitis was disc ussed. He was reassured that I do not suspect DVT. Case and care plan were discussed with Dr. Okeefe. Continue with continuation with IV antibiotics and close monitoring is recommended at this time. We will continue to follow while he is in the hospital. At discharge, we will be happy to see him in the office for continued management. If swelling should recur, he may benefit from a Rodriguez type dressing. Thank you for this consult and we will be happy to follow while he is admitted. I, Dr. Okeefe, saw and examined the patient and discussed the management with my PA. I reviewed my PAs note and agree with the documented findings and the plan of care I developed. History of Present Illness Reason for Consultation: Right foot cellulitis and pain, Erosive fifth metatarsal. Attending Physician: Celio Mac, DO History of Present Illness This 74-year-old white [employer] male presented to the ED yesterday with right foot redness, swelling, warmth, and pain. Symptoms were present for several days and were becoming worse with time. He thought it would go away and get better, but it did not. Pain was intolerable yesterday. He could not wiggle his toes or move his foot without severe pain. He denies any fevers or chills. No shortness of breath. He does have a history of peripheral vascular disease and has difficulty healing wounds. His and daughter are currently in the room during examination. Allergies Allergy/AdvReac Type Severity Reaction Status Date / Time ragweed pollen Allergy Mild Verified 04/24/19 11:27 No Known Drug Allergies Allergy Verified 04/24/19 11:27 Dust Allergy Mild Uncoded 04/24/19 11:27 Home Medications Home Medications Medication Instructions Recorded Confirmed Type albuterol sulfate [Ventolin HFA] 2 puff INHALATION Q6H PRN #18 gm 08/07/18 04/24/19 Rx magnesium oxide 400 mg PO QAM #30 tab 08/07/18 04/24/19 Rx aspirin 325 mg tablet 325 mg PO DAILY #90 tab 04/02/19 04/24/19 Rx carvedilol 12.5 mg tablet 12.5 mg PO BID #180 tab 04/02/19 04/24/19 Rx cilostazol 100 mg tablet 100 mg PO BID #60 tab 04/11/19 04/24/19 Rx furosemide 80 mg tablet 80 mg PO DAILY #90 tab 04/11/19 04/24/19 Rx lisinopril 20 mg tablet 20 mg PO DAILY #90 tab 04/11/19 04/24/19 Rx potassium chloride ER 10 mEq 10 meq PO DAILY cap 04/11/19 04/24/19 History capsule,extended release mupirocin 2 % topical ointment 1 appln TOPICAL BID PRN #1 gm 04/15/19 04/24/19 History Patient History Medical History Venous ulcer MICHAEL (acute kidney injury) Aortic stenosis Atrial fibrillation with normal ventricular rate (Acute) RBBB (Acute) PAD (peripheral artery disease) (Acute) CHF (congestive heart failure) (Chronic) Cardiomegaly (Chronic) Family History Other No significant family history Social History Communication Ability: Effective 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 Beliefs That Will Affect Care: None Current Living Situation: Family Current Living Situation Comment: Lives in [place] with Other Information That Helps Us Care for You: No Feels Safe at Home: Yes Safety Concerns: Feels Safe At This Time Smoking Status: Former smoker Tobacco Type: cigarettes ; Cigarettes Per Day: 1ppd ; Do You Dip or Chew Tobacco: No ; Second Hand Exposure: No ; Tobacco Cessation Education Requested by Patient: No Hx Alcohol Use: No Hx Substance Use: No Review of Systems Review of Systems: All systems reviewed & are unremarkable except as noted in HPI & below Physical Exam Physical Exam: General: Well-developed, well-nourished, elderly white male, in no acute distress. Sitting on a bed. Alert and oriented. Conversive. Skin: Warm and dry with good turgor. No rashes or lesions. No ecchymosis or erythema. The patient is not diaphoretic. No abrasions. Mild erythema present over the inner arch of the right foot. It is approximately 5 cm x 6 cm. No significant warmth at this time. Mild edema in the foot and toes. No erythema or open wounds laterally. His states that the foot looks much better today than it did yesterday. Both redness, warmth, and edema have improved. Musculoskeletal: Patient has intact motor function to his ankle and toes. He is able to flex and extend his toes without much discomfort. No pain with palpati on over the ankle, hindfoot, forefoot, or digits. He does have discomfort with palpation over the midfoot, specifically medially. It is exclusively over the erythemic area. No pain with palpation over the lateral foot or fifth metatarsal base. Neurologic: Gross sensation is intact across the right lower extremity by soft touch. Peripheral pulses are 1+. Capillary refill is equal for each of the digits. Results & Data Vital Signs (Past 12 Hours) Vital Signs Temp Pulse Resp BP Pulse Ox 04/25/19 12:05 36.3 C L 79 20 100/59 L 94 04/25/19 08:00 36.3 C L 87 22 123/64 95 04/25/19 03:01 36.7 C 81 18 122/68 95 Diagnostic Findings Foot x-ray obtained yesterday is unremarkable. CT scan imaging obtained yesterday was reviewed by me with Dr. Okeefe. There is no convincing evidence of osteomyelitis at this time. Erosive abnormality is noted at the fifth metatarsal head. No evidence of retained foreign body or abscess. Venous Doppler obtained yesterday of the lower extremity shows no evidence of DVT. There is a superficial thrombus. (1) Cellulitis Laterality: right Site of cellulitis: extremity Site of cellulitis of extremity: lower extremity Qualified Code(s): L03.115 - Cellulitis of right lower limb
[2019-04-25] MEDS ORDERED: SODIUM CHLORIDE 0.9% 1000ML 1,000 ML IV SCH (16:15)
--- NOTE | 2019-04-25 16:20 | Consultation ---
Date of Consultation April 25, 2019 Assessment & Plan (1) PAD (peripheral artery disease): Pt with known severe PAD and osteomyelitis. Pt's toes remain normal colored, pink and warm to touch with good cap refill. Pt discussed with Dr Gibson, who reviewed pt's imaging as well. Surgical options are limited d/t pt's severe widespread arterial disease based on prior exams of this pt. Further consideration of surgical options will require further imaging. Will order CTA today and have Dr Gibson review and discuss further with pt and family. Patient was seen, examined, and chart reviewed. Agree with exam and treatment plan of the Vascular PA. History of Present Illness Reason for Consultation: RLE osteomyelitis Attending Physician: Celio Mac DO History of Present Illness 73 yo m with hx of CHF, a fib, nonischemic cardiomyopathy, PAD, HTN, admitted with infection of his RLE, seen in consultation today for PAD and osteomyelitis. Pt states has had ulceration for about 18 months, then it healed a few months ago with local wound care. Noted increased edema and erythema a few days ago a nd came to [facility]. States his leg appears improved since arrival. Pt admits severe BL calf claudication at less then 100 ft. States he underwent attempted procedure by Dr Brooks in past, but was unable to access the arteries, so nothing was able to be done. Pt deneis rest pain or discoloration of toes. Admits edema of BLE, worse when standing for long periods. Denies FARR, fever, chills, chest pain, SOB, abd pain, N/V, other complaints. No arterial imaging performed this admission Allergies Allergy/AdvReac Type Severity Reaction Status Date / Time ragweed pollen Allergy Mild Verified 04/24/19 11:27 No Known Drug Allergies Allergy Verified 04/24/19 11:27 Dust Allergy Mild Uncoded 04/24/19 11:27 Home Medications Home Medications Medication Instructions Recorded Confirmed Type albuterol sulfate [Ventolin HFA] 2 puff INHALATION Q6H PRN #18 gm 08/07/18 04/24/19 Rx magnesium oxide 400 mg PO QAM #30 tab 08/07/18 04/24/19 Rx aspirin 325 mg tablet 325 mg PO DAILY #90 tab 04/02/19 04/24/19 Rx carvedilol 12.5 mg tablet 12.5 mg PO BID #180 tab 04/02/19 04/24/19 Rx cilostazol 100 mg tablet 100 mg PO BID #60 tab 04/11/19 04/24/19 Rx furosemide 80 mg tablet 80 mg PO DAILY #90 tab 04/11/19 04/24/19 Rx lisinopril 20 mg tablet 20 mg PO DAILY #90 tab 04/11/19 04/24/19 Rx potassium chloride ER 10 mEq 10 meq PO DAILY cap 04/11/19 04/24/19 History capsule,extended release mupirocin 2 % topical ointment 1 appln TOPICAL BID PRN #1 gm 04/15/19 04/24/19 History amoxicillin-pot clavulanate 1 tab PO BID #60 tab 04/26/19 Rx [Augmentin] atorvastatin 80 mg PO QAM #30 tab 04/26/19 Rx clopidogrel 75 mg PO QAM #30 tab 04/26/19 Rx rivaroxaban [Xarelto] 15 mg PO DAILY #30 tab 04/26/19 Rx Patient History Medical History Venous ulcer MICHAEL (acute kidney injury) Aortic stenosis Atrial fibrillation with normal ventricular rate (Acute) RBBB (Acute) PAD (peripheral artery disease) (Acute) CHF (congestive heart failure) (Chronic) Cardiomegaly (Chronic) Family History Other No significant family history Social History Communication Ability: Effective 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 Beliefs That Will Affect Care: None Current Living Situation: Family Current Living Situation Comment: Lives in [place] with Feels Safe at Home: Yes Smoking Status: Former smoker Tobacco Type: cigarettes ; Cigarettes Per Day: 1ppd ; Second Hand Exposure: No ; Hx Alcohol Use: No Hx Substance Use: No Review of Systems Review of Systems: All systems reviewed & are unremarkable except as noted in HPI & below Physical Exam Constitutional: WD/WN, vitals as above well developed, well nourished, + obese, healthy appearing, well groomed, cooperative and comfortable; not in distress and not combative Eyes: PERRL, conjunctivae normal, anicteric sclerae EOM intact bilaterally ENMT: external ear and nose normal, oropharynx normal Ears: no hearing impairment Nose: no nasal discharge Neck: no tracheal deviation, no neck crepitus and neck nontender Respiratory: normal respiratory effort, lungs clear to auscultation able to speak in complete sentences and + tachypneic; does not use accessory muscles and no cough Auscultation: lungs clear to auscultation bilaterally and + diminished lung sounds; no wheezes Cardiovascular: Rate/Rhythm: regular rate and regular rhythm Heart Sounds: no gallop and no murmur Vessels: posterior tibial pulses present (nonpalpa ble), dorsalis pedis pulses present (nonpalpable), brachial pulses present and radial pulses present; no carotid bruit, no femoral bruit and + abnormal peripheral pulses Extremities: + pedal edema and + edema; + abnormal capillary refill (delayed, but warm pink toes) Gastrointestinal (Abdomen): Inspection/Auscultation: abdomen normal to inspection and normal bowel sounds; abdomen not distended and no abdominal edema Percussion/Palpation: abdomen soft; abdomen nontender, no guarding and a bdomen not rigid Musculoskeletal: no cyanosis or clubbing, extremities motor strength 5/5 Head/Neck/Chest: normocephalic, head atraumatic, neck supple and + abnormal inspection of chest wall; no chest tenderness Extremities: extremities normal to inspection, strength 5/5 throughout and + chronic stasis changes; full ROM of extremities Skin: no rashes, warm and dry normal turgor and + erythema (warmth, and erythema to R medial dorsal foot); no rashes, no lesions, no ulcers, no wound, no eschar, no excoriations, no mottling and no pallor Neurologic: moves all extremities and awake; no focal motor deficits and not confused Speech / Cognition: no expressive aphasia and no receptive aphasia Motor/Sensory: no tremor and no sensory deficit Cranial Nerves: EOM intact bilaterally and normal facial strength Psychiatric: Orientation: alert, oriented x 3 and cooperative Apperance: appropriately dressed and appeared stated age Affect: euthymic affect Thought Process: goal directed thought process, linear/logical thought process and clear/coherent thought process Cognition: recent memory grossly intact, remote memory grossly intact, attention grossly intact and language grossly intact Estimated Intelligence: average estimated intelligence Results & Data Vital Signs (Past 12 Hours) Vital Signs Temp Pulse Resp BP Pulse Ox 04/25/19 15:15 36.7 C 86 22 127/61 95 04/25/19 12:05 36.3 C L 79 20 100/59 L 94 04/25/19 08:00 36.3 C L 87 22 123/64 95
[2019-04-25] MEDS ORDERED: OPTIRAY 320 125ml IV PRN (19:00)
--- NOTE | 2019-04-25 19:34 | CT Scan Report ---
CT angio abd aorta runoff w con CT DOSE: 1930.53 mGy.cm CLINICAL HISTORY: Peripheral vascular disease. Osteomyelitis. TECHNIQUE: CT angiography of the abdomen and lower extremities was performed in a dynamic helical fas hion during intravenous administration of 117 cc Optiray 320. MIP images were obtained. A dose lower ing technique was utilized adhering to the principles of ALARA. COMPARISON STUDY: August 08, 2014 FINDINGS: The visualized portions lung bases reveal mild dependent atelectasis. No hepatic masses are visualized in this arterial phase study. No gallbladder masses are visualized. No splenic lesions are visualized. No pancreatic masses are visualized. There is mild bilateral adrenal gland thickening. No solid renal masses are visualized in the central face study. Small fat-containing umbilical hernia. There are no transition zones indicate bowel obstruction. There is no ascites. There is no free intra peritoneal air. No acute inflammatory changes are visualized within the abdomen. The prostate is enlarged. There is bladder wall thickening. There are severe atheromatous changes present. There is minimal atheromatous narrowing of the celiac and superior mesenteric artery origins without evidence of hemodynamic significant stenosis. There ar e mild atheromatous changes involving the renal artery origins without evidence of hemodynamic signif icant stenosis. The inferior mesenteric artery is patent. There is severe atheromatous changes within the infrarenal abdominal aorta. The distal abdominal aort a is occluded. Both common iliac arteries are occluded. There is reconstitution of the left external iliac artery. There are extensive atheromatous changes p resent within the left common femoral artery. The left superficial femoral artery is occluded. The le ft popliteal artery is occluded with distal reconstitution. There are diffuse atheromatous changes wi thin the 3 runoff vessels on the left. The right external iliac artery is occluded. The right superficial femoral artery is occluded. There is reconstitution of the distal right superficial femoral artery near the popliteal origin. There are diffuse atheromatous changes present within the popliteal artery. There are diffuse atheromatous brandon nges within the 3 runoff vessels of the lower leg. There are bilateral knee joint effusions. There is a lipoma within the left calf musculature.. IMPRESSION: 1. Extensive atherosclerotic disease. 2. Occlusion of the distal abdominal aorta at the level of the bifurcation 3. Occlusion of both common iliac arteries. 4. Occlusion of the right external iliac artery. 5. Occlusion of both superficial femoral arteries. 6. Left popliteal artery occlusion with distal reconstitution. 7. Reconstitution of the distal right superficial femoral artery near the popliteal artery and. 8. Diffuse atheromatous changes involving both popliteal arteries. 9. Moderate to severe atheromatous changes involving both tibioperoneal trunks. 10. Moderate atheromatous changes involving the runoff vessels on the left. Mild atheromatous changes within the runoff vessels on the right. Electronically signed by: Roberto Og M.D. 04/25/2019 7:32 PM
[2019-04-26 05:41] LABS: BUN Creatinine Ratio 29.3 (10-20); Calcium 8.7 mg/dl (8.5-10.1); Creatinine Clr Calc Pharmacy 56.1 ml/min; Est GFR (Non-African American) 50.9; Potassium 4.4 mmol/L (3.5-5.1)
[2019-04-26] MEDS: ENOXAPARIN INJ 120 MG/0.8 ML SYR SQ SCH (06:09)
[2019-04-26] MEDS: carvediloL 12.5 MG TAB PO SCH (08:37)
[2019-04-26] MEDS: AMPICILLIN/SULBACTAM SOD 3,000 MG in 0.9 % SODIUM CHLORIDE 100 ML IV SCH ×2 (08:37→17:25)
[2019-04-26] MEDS: MAGNESIUM OXIDE 400 MG TAB PO SCH (08:37)
[2019-04-26] MEDS ORDERED: CLOPIDOGREL BISULFATE 75 MG TAB PO SCH (09:00)
[2019-04-26] MEDS ORDERED: ATORVASTATIN 40 MG TAB PO SCH (09:00)
[2019-04-26] MEDS ORDERED: VANCOMYCIN TROUGH ONE (09:30)
--- NOTE | 2019-04-26 10:14 | Surgery Progress Note ---
Date of Service April 26, 2019 Assessment & Plan (1) PAD (peripheral artery disease): Patient underwent CT angiography of the abdominal aorta pelvis and runoff. He has severe occlusive disease of the lower extremities with an occluded aorta and occluded iliacs. He has bilateral superficial femoral arteries are also occluded as well as multiple occlusions of the infrapopliteal arteries. At this point no intervention is required. If intervention is needed he would need either an aortobifemoral or ax bifemoral bypass as well as distal bypass on the compromise lower extremity. Due to the extensive surgery which is required and not recommend we intervene at this point. I would hold off on any surgical salvage unless the lower extremity is threatened with pending loss. Please call us if needed.Thank you very much for letting us participate in the care of this patient. Subjective Patient without complaint. He has no rest pain in either foot. Physical Exam Physical Exam: On on exam there is capillary refill both feet. No evidence of severe ischemia is noted in either lower extremity. He has no palpable pulses in the lower extremity. Results & Data Vital Signs (Past 12 Hours) Vital Signs Temp Pulse Resp BP Pulse Ox 04/26/19 07:22 36.2 C L 90 18 137/74 94 04/26/19 00:10 36.6 C 84 18 102/56 L 94
--- NOTE | 2019-04-26 12:51 | Orthopedic Progress Note ---
Date of Service April 26, 2019 Assessment & Plan (1) Cellulitis: Would recommend IV antibiotics as per Hospitalist Ice/elevation as needed for swelling Weight bear as tolerated right lower extremity Encouraged follow up with Dr. Okeefe in 2-4 weeks for recheck or PRN if things worsen. Advance activities as tolerated. Will discuss findings with Dr. Okeefe. I, Dr. Okeefe, saw and examined the patient and discussed the management with my PA. I reviewed my PAs note and agree with the documented findings and the plan of care I developed. The patient will follow-up in 1-2 weeks for clinical reevaluation. Subjective Sitting up in bed, eating lunch, states redness is improved, not much pain in right foot. Physical Exam Physical Exam: Right foot not specifically tender with palpation today. Dorsalis pedis pulse 1+, sensation normal. Small amount of redness dorsal medial side of foot. Nontender with palpation of 5th MT. Full ankle ROM. Minimal swelling, no blisters or ecchymosis. Results & Data Vital Signs (Past 12 Hours) Vital Signs Temp Pulse Resp BP Pulse Ox 04/26/19 07:22 36.2 C L 90 18 137/74 94 (1) Cellulitis Laterality: right Site of cellulitis: extremity Site of cellulitis of extremity: lower extremity Qualified Code(s): L03.115 - Cellulitis of right lower limb
--- NOTE | 2019-04-26 18:31 | Discharge Summary ---
Date of Service April 26, 2019 Admission HPI Per Admitting Provider Patient is a 74 years old male with past medical history of congestive heart failure, atrial fibrillation with normal ventricular rhythm, peripheral artery disease, nonischemic cardiomyopathy, aortic stenosis, who presents to the emergency room with complaint of constant right ankle and foot pain that started to develop about a week ago. Patient rates that pain is a 9 of 10 and describes it as shooting pain. In addition to that patient said that there is a swelling of his right lower extremities up to the ankle. Patient has difficulty walking. Patient was seen in the urgent care for his symptoms and sent here for the further work-up. Patient said nothing alleviated his pain. He tried with ibuprofen but that did not help. Patient denies fever chills chest pain shortness of breath abdominal pain frequency urgency hematemesis hematuria dysuria melena. Patient also mentioned that he has a history of extensive peripheral vascular disease and that at some point he saw Dr. Reyes and recommended to have arthroplasty of his lower extremities blood vessels which patient refused. Patient supposed to be on warfarin for A. fib's but on multiple occasions his warfarin was very poorly controlled either too high or too low that his pest control chemical technician due to high risk did not have any other option than to put him on aspirin 325 mg only. Labs are reviewed: WBC 5.64, hemoglobin 12.2, hematocrit 37.3 platelets 132, PT 10.9, INR 1.1, APTT 28.5, sodium 137, potassium 4.6, BUN 27, creatinine 1.19, GFR 59.8, uric acid 8.2, lactate 1.1,AST 14, ALT 20, C-reactive protein 1.73, alkaline phosphatase 73. Urine all negative normal. With nose Doppler shows no DVT within the right lower extremity. There is nonocclusive lesser soft nose superficial thrombosis approximately 4.6 cm from the popliteal vein. CT of the right lower extremity significant for erosive change identified within the fifth metatarsal head. This is concerning for osteomyelitis. Knee joint effusion. Was made to admit patient to PCU on telemetry for further evaluation and treatment of possible osteomyelitis of the right foot, gout, cellulitis, thrombosis in the superficial soft the nose vein and to start him on full anticoagulation with Lovenox for thrombosis and for A. fib's. Principal Diagnosis Severe peripheral vascular disease, foot cellulitis, high concern on right fifth metatarsal osteomyelitis Discharge Exam General he is awake and alert pleasant no distress. HEENT normocephalic atraumatic mucous membranes moist. Breathing unlabored no accessory muscle use good effort. Skin shows no rashes no pallor or icterus. Discharge Data Allergies Allergy/AdvReac Type Severity Reaction Status Date / Time ragweed pollen Allergy Mild Verified 04/24/19 11:27 No Known Drug Allergies Allergy Verified 04/24/19 11:27 Dust Allergy Mild Uncoded 04/24/19 11:27 Consultations 04/24/19 16:04 ED Decision to Admit Stat 04/24/19 21:18 Consult Orthopedic Surgery Routine Consult Vascular Surgery Routine 04/25/19 10:18 Consult Case Management - Discharge Planning Routine Ordered Studies 04/24/19 11:38 US venous doppler LE RT Stat 04/24/19 16:02 CT foot RT w con Stat 04/24/19 16:04 CT ankle RT w con Stat 04/24/19 16:29 CT tib/fib RT w con Stat 04/25/19 19:00 CT angio abd aorta runof w con Routine Hospital Course (1) Osteomyelitis: (2) Cellulitis: Initially started on vancomycin and Zosyn, but on further review his risk of nosocomial pathogens is quite lowchanged to Unasyn, still improving. Acutely appears to be stable to go home on Augmentin. The cellulitis on the dorsum of his foot has improved entirely. The main area of concern would be the fifth metatarsal that looks quite suspicious for osteomyelitis by CT scan, and was modestly tender on physical exam. We discussed various plans for this, but given that he was not a good operative candidate as it relates to his peripheral vascular disease combined with the fact that he really would like to avoid surgeries more or less at all cost (but with a rational view of this), it seems that the appropriate course of treatment will be to treat the presumed osteomyelitis with Augmentin for 4 weeks, with close PCP and orthopedic follow- up. If he does well after this, he will simply need vigilance, but if the infection seems to come back, and he may need chronic suppressive antibiotics. (3) Superficial vein thrombosis: Anticoagulation for A. fib will suffice (4) Aortic stenosis: (5) Nonischemic cardiomyopathy: Stable throughout his hospital stay in this regard (6) PAD (peripheral artery disease): Escalate med managementchange aspirin to Plavix. Start atorvastatin 80 mg (risks benefits discussed) continue current meds otherwise. Outpatient follow-up with PCP (7) Atrial fibrillation with normal ventricular rate: Had a little bit of mild tachycardia here, but no concerning findings overall. Stable for discharge to home. Had previously been on Coumadin, but this was quite erratic, case management worked with patient and believes there is a reasonable chance he can get Xarelto through the [facility] program. Given his GFR borders just above 50, we will utilize renal dosing (the cutoff is 51) believing it be safer to have him on the lower end of what would be recommended range of dosing as opposed to having it be high and risking bleed more. Will prescribe Xarelto 15 mg daily, discussed the balance of bleeding versus stroke prevention. Total Time Total Time Spent Total Time Spent (In Minutes): >30 Discharge Plan Discharge Items Patient Disposition: Home - Self-Care Reason For Visit: RIGHT MIDFOOT CELLULITIS Discharge Diagnosis: Right foot concern for osteomyelitis Right foot cellulitis PAD Activity: Per Instructions section Non-emergency contact: Primary Care Provider Call non-emergency contact if: your symptoms worsen Follow-up/Referrals: Jose De Jesus Sol MD [Primary Care Provider] - 05/02/19 9:15 am (Please, follow up with Dr. Sol on May 02 at 9:15 am. *If you need to change this appointment, call the office at [phone].) Sandro Okeefe MD [Physician] - (call to schedule appointment in 7-[address] Okeefe) Diet: Heart Healthy Addtl Attending Provider Instructions: Foot infection -fortunately the infection got better very quickly with antibiotics, unfortunately it does look pretty concerning on CT scan that the 5th metatarsal (the outside bone of your foot) is infected --> this, combined with the bad blood flow, creates concern on a situation that is going to require more technician terminal and repeater management -typically a skin and soft tissue infection will require a week or two of antibiotics to get better, but infected bone will usually need at least a month, sometimes longer, and when there's also bad blood flow involved, it can sometimes be an infection that does not get better -we'll treat for now with four weeks of antibiotics (augmentin) twice a day (next dose tonight). we'll ask that your PCP keep an eye on how you are healing and how your foot examines (particularly paying attention to the redness where you had it in the skin, but also to the degree of tenderness over the 5th metatarsal since that's the suspicious bone). if things keep getting better, then at 4 weeks, they'll likely be able to stop the antibiotics - but that's where we'll want them to actually watch you even closer. as we discussed, bone infections generally "smolder rather than explode" and also as we discussed, if a skin and soft tissue infection is like a fire, the bone infection can basically be the coals smoldering at the base of the fire -- which all means that if you get totally better on antibiotics, but then the same foot gets a skin infection a few weeks after the antibiotics are done (or if the 5th metatar marti area gets more tender), that would be indicative of a bone infection. if this is the case, since there's little that Dr Reyes felt like would be beneficial to you in improving blood flow (and certainly surgeries were in your priority list to avoid!) then there would a be a pretty strong case to be made of using antibiotics as as chronic "suppressive" therapy (meaning if the infection can't be fixed, keeping it at bay will help protect you from recurrent skin infections as well as problems where the bone erodes due to the infection) -this will all be "captained" by your PCP in follow up, and the orthopedic surgeon here (Dr Okeefe with [facility]) can also help out keeping an eye on things peripheral vascular disease (blocked arteries in the legs) -this is the "root cause" of the problem leading to the infections - with bad blood flow your body is not able to heal "regular wear and tear" as readily, and also your immune system will not have as big of a presence in the leg and foot since there won't be the ability to get as many white blood cells down there -since the vascular disease is non-operative, we need to do everything we can to keep blood flowing and preserve the circulation you still have -the walking you've been doing is excellent to try to grow new blood vessels- definitely keep that up -we'll stop the aspirin and switch to plavix (clopidogrel) as an antiplatelet blood thinner as it is a little bit of a stronger blood thinner than the aspirin -we're starting atorvastatin (lipitor) for two different reasons: most importantly, when someone has blockages of blood vessels, medications like atorvastatin (and only at medium to high doses) work to keep the blockages from breaking open (when blockages break open, then our body forms a clot midstream in the blood vessel - so using the atorvastatin will help reduce this from happening); less importantly but still quite important, having cholesterol numbers suppressed can help to keep you from progressing the blockages that you already have. (your total cholesterol was 216, HDL (good) 51, LDL (bad) 113. to reiterate, the best science on statins relates much more to stabilizing the blockages in the arteries, but the science related to suppressing cholesterols is still important too -- and for someone with blockages like you've got, we'd want your non-HDL (subtract good from total) to be less than 100 (yours being 165) and then less important but still important we'd want your LDL to be less than 70) -- being on 80mg of lipitor (atorvastatin) will get us the "plaque stabilization" benefit, but also should get your numbers most of the way to goal. -the main thing to watch for with side effects is muscle aches; although this is quite rare (and to clarify - is not an accentuation of aches you might already have, but rather is usually more like "you have the flu" but don't have the flu) -we do watch people's liver numbers when they're on statin medicines, but people really rarely run into any trouble, and most of the time it's a minor elevation in liver numbers that usually means very little (and in those cases the statistics would say that it's actually safer as a whole person to stay on the medicine to protect your arteries than to stop it to have labwork that is not causing you symptoms to improve) atrial fibrillation -as we discussed, because with atrial fibrillation the top part of the heart quivers rather than contracts, it can allow a stagnant pond to form, and that stagnant pond can allow clotting, and generally if that occurs the most likely place for the clot to go is the brain, killing off brain tissue and causing a stroke -you calculate to be about a 4% risk each year for a stroke as it relates to your afib, and therefore would definitely be safer on a true blood thinner (as we discussed yesterday, antiplatelet medicines like aspirin and plavix work to protect artery disease from clotting but do little to protect from afib related clots, and conversely anticoagulation medicines protect from afib related clots but don't do much to protect arteries) -you previously had been on coumadin for this, but as is often the case, the regulation of the coumadin was too difficult to keep on top of -the "newer" (put in quotes because they've now been in widespread use for 5-8 years depending on each particular medicine) are much easier to use, generally do as good or better of a job at protecting people from stroke, and have less overall serious bleeding than coumadin (and if there's going to be a serious bleed, it's most likely to be gastrointestinal, which are usually the easiest to manage) -it looks like halle horne (our nurse navigator) has found a way to hopefully make xarelto (one of these newer blood thinners) affordable -remember, the reason for the xarelto (blood thinner) is to protect you from stroke, so while there's an increased risk of bleeding on these medicines, we can almost always stabilize or fix a bleed, and we can almost never give back brain tissue after an afib related stroke -generally if it's bleeding you can put pressure on, most will respond to 10 minutes of pressure (think things like nosebleeds or a cut); if the bleeding doesn't respond to 10 minutes of pressure, then if it's a nosebleed it might need packed or cauterized; if it's a cut it might need a stitch. if it's bleeding you can't put pressure on, then we'd want you to come straight to the ER (such as vomiting blood or pooping blood) Pending Studies at Discharge: Yes Studies:: blood cultures - prelim no growth at 24 hrs. Stand-Alone Forms: [facility] Medic[facility] and DC Order Prescriptions: New atorvastatin 40 mg Tablet 80 mg PO QAM Qty: 30 RF: 0 clopidogrel 75 mg Tablet 75 mg PO QAM Qty: 30 RF: 0 Xarelto 15 mg tablet 15 mg PO DAILY Qty: 30 RF: 0 amoxicillin-pot clavulanate [Augmentin] 875-125 mg tablet 1 tab PO BID Qty: 60 RF: 0 Continued mupirocin 2 % ointment 1 appln topical BID PRN (Reason: INFECTION) Qty: 1 RF: 0 carvedilol 12.5 mg tablet 12.5 mg PO BID Qty: 180 RF: 3 furosemide 80 mg tablet 80 mg PO DAILY Qty: 90 RF: 3 potassium chloride 10 mEq capsule, extended release 10 meq PO DAILY RF: 0 lisinopril 20 mg tablet 20 mg PO DAILY Qty: 90 RF: 3 albuterol sulfate [Ventolin HFA] 90 mcg/actuation Hfa Aerosol Inhaler 2 puff Inhalation Q6H PRN (Reason: shortness of breath or wheezing) Qty: 18 RF: 0 magnesium oxide 400 mg (241.3 mg magnesium) Tablet 400 mg PO QAM Qty: 30 RF: 0 Discontinued aspirin 325 mg tablet 325 mg PO DAILY Qty: 90 RF: 3 cilostazol 100 mg tablet 100 mg PO BID Qty: 60 RF: 5 Discharge Orders: Discharge Order (Routine); Ordered 04/26/19 Ordered By: Celio Mac Admission Data Admit Date/Time: 04/24/19 19:53 Attending Provider: Celio Mac Admit Provider: Lida Camara Primary Care Provider: Jose De Jesus Sol. Other Providers: Lida Camara ; Sandro Okeefe ; Candido Reyes Other Interventions: Discharge Summary Assessment (RN) Last Done: 04/26/19 14:52 DC Date/Time DO NOT enter until pt leaves facility: 04/26/19 18:16
== END 2019-04-26 18:16 | disposition home or self-care (01) | DRG 540 ==
LOC: ED 10:37 → SUATTDRO 19:53 → 2S 19:53 → 4W 04-25 17:46